=== PATIENT | female | born 1995 | race African-American/Black ===

== ENCOUNTER → 2017-05-30 | Outpatient (CLI) | payer MEDICAID ==
[2017-05-30 12:44] LABS: HEMATOCRIT 39.2 % (36.0-47.0); HEMOGLOBIN 12.7 g/dL (12.0-15.5); MEAN CORPUSCULAR HEMOGLOBIN 26.2 pg (27.0-33.4); MEAN CORPUSCULAR HGB CONC 32.3 g/dL (32.0-36.0); MEAN CORPUSCULAR VOLUME 81 fl (80-97); PLATELET COUNT 283 10^3/uL (150-450); RED BLOOD COUNT 4.84 10^6/uL (3.72-5.28); RED CELL DISTRIBUTION WIDTH 13.6 % (11.5-14.0); WHITE BLOOD COUNT 5.5 10^3/uL (4.0-10.5)
[2017-05-30 13:08] LABS: ANION GAP 12 (5-19); BLOOD UREA NITROGEN 12 mg/dL (7-20); CALCIUM 9.6 mg/dL (8.4-10.2); CARBON DIOXIDE 24 mmol/L (22-30); CHLORIDE 106 mmol/L (98-107); GLUCOSE 130 mg/dL (75-110); SODIUM 141.5 mmol/L (137-145)
[2017-05-30 13:21] LABS: FREE T4 (FREE THYROXINE) 1.14 ng/dL (0.78-2.19)
[2017-05-30 13:35] LABS: THYROID STIMULATING HORMONE 1.33 uIU/mL (0.47-4.68)
== END ==
LOC: OD 12:03
PROVIDERS: ATTEND Internal Medicine Cardiovascular Disease
DX: R00.2 Palpitations (principal)
CPT/HCPCS: 36415; 80048; 83735; 84439; 84443; 84481; 85027

== ENCOUNTER 2017-12-17 21:24 | Emergency (ER) | payer MEDICAID ==
[2017-12-17] MEDS ORDERED: ACETAMINOPHEN 325 MG TABLET PO ONE (22:05)
[2017-12-17] MEDS ORDERED: NORMAL SALINE 1000 ML 1,000 ML IV ONE (23:13)
[2017-12-17] MEDS ORDERED: IBUPROFEN 600 MG TABLET PO ONE (23:14)
[2017-12-18 00:41] LABS: ABSOLUTE BASOPHILS # (AUTO) 0.1 10^3/uL (0.0-0.2); ABSOLUTE EOSINOPHILS # (AUTO) 0.1 10^3/uL (0.0-0.6); ABSOLUTE LYMPHOCYTES (AUTO) 0.9 10^3/uL (0.5-4.7); ABSOLUTE MONOCYTES (AUTO) 0.6 10^3/uL (0.1-1.4); ABSOLUTE NEUT (AUTO) 7.3 10^3/uL (1.7-8.2); BASOPHILS % (AUTO) 0.6 % (0-2); EOSINOPHILS % (AUTO) 0.6 % (0-6); HEMATOCRIT 36.3 % (36.0-47.0); HEMOGLOBIN 12.3 g/dL (12.0-15.5); LYMPHOCYTES % (AUTO) 10.2 % (13-45); MEAN CORPUSCULAR HEMOGLOBIN 27.4 pg (27.0-33.4); MEAN CORPUSCULAR VOLUME 81 fl (80-97); MONOCYTES % (AUTO) 7.1 % (3-13); PLATELET COUNT 264 10^3/uL (150-450); RED BLOOD COUNT 4.51 10^6/uL (3.72-5.28); RED CELL DISTRIBUTION WIDTH 13.1 % (11.5-14.0); SEGMENTED NEUTROPHILS % (AUTO) 81.5 % (42-78); TOTAL CELLS COUNTED % (AUTO) 100 %
[2017-12-18 00:42] LABS: APPEARANCE,URINE CLEAR; BILIRUBIN,URINE NEGATIVE (NEGATIVE); COLOR,URINE YELLOW; GLUCOSE, URINE NEGATIVE (NEGATIVE); KETONES,URINE NEGATIVE (NEGATIVE); LEUKOCYTE ESTERASE,URINE NEGATIVE (NEGATIVE); NITRITE,URINE NEGATIVE (NEGATIVE); PROTEIN,URINE NEGATIVE (NEGATIVE); URINE SPECIFIC GRAVITY 1.024
[2017-12-18] MEDS ORDERED: SULFAMETHOXAZOLE/TRIMETHOPRIM 800-160 MG TABLET PO ONE (00:47)
--- NOTE | 2017-12-18 00:49 | ER Document Report ---
ED General - General Chief Complaint: Abscess Stated Complaint: POSSIBLE FEVER Time Seen by Provider: 12/17/17 23:12 Notes: Patient is a 22-year-old female without chronic medical problems who presents with fever and an abscess in her right pelvic region just superior and lateral to her labia majora. Patient states that her symptoms in terms of the fever started today, the abscess has been present for the past 3 days. She notes a dull, throbbing, constant pain to the area. Touching the area worsens the pain. Nothing improves the pain. Reports a long-standing history of similar infections in the past. She has not seen her general doctor regarding today's concerns. She denies any cough, sputum production, headache, neck pain, nausea , vomiting or diarrhea. TRAVEL OUTSIDE OF THE [place] IN LAST 30 DAYS: No - Related Data Allergies/Adverse Reactions: No Known Allergies Allergy (Unverified 12/17/17 21:37) Past Medical History - General Information source: Patient - Social History Smoking Status: Never Smoker Frequency of alcohol use: None Drug Abuse: None Lives with: Family Family History: Reviewed & Not Pertinent Patient has suicidal ideation: No Patient has homicidal ideation: No Renal/ Medical History: Denies: Hx Peritoneal Dialysis Review of Systems - Review of Systems Notes: Constitutional: Positive for fever. HENT: Negative for sore throat. Eyes: Negative for visual changes. Cardiovascular: Negative for chest pain. Respiratory: Negative for shortness of breath. Gastrointestinal: Negative for abdominal pain, vomiting or diarrhea. Genitourinary: Negative for dysuria. Musculoskeletal: Negative for back pain. Skin: Positive for right groin abscess Neurological: Negative for headaches, weakness or numbness. 10 point ROS negative except as marked above and in HPI. Physical Exam - Vital signs Vitals: Temp Pulse Resp BP Pulse Ox 102.0 F H 134 H 20 140/75 H 99 12/17/17 21:46 12/17/17 21:46 12/17/17 21:46 12/17/17 21:46 12/17/17 21:46 Interpretation: Hypertensive, Tachycardic, Febrile Notes: PHYSICAL EXAMINATION: GENERAL: Well-appearing, well-nourished and in no acute distress. HEAD: Atraumatic, normocephalic. EYES: Pupils equal round and reactive to light, extraocular movements intact, sclera anicteric, conjunctiva are normal. ENT: nares patent, oropharynx clear without exudates. Moderately dry mucous membranes. NECK: Normal range of motion, supple without lymphadenopathy LUNGS: Breath sounds clear to auscultation bilaterally and equal. No wheezes rales or rhonchi. HEART: Regular tachycardia without murmurs ABDOMEN: Soft, nontender, normoactive bowel sounds. No guarding, no rebound. No masses appreciated. EXTREMITIES: Normal range of motion, no pitting or edema. No cyanosis. NEUROLOGICAL: No focal neurological deficits. Moves all extremities spontaneously and on command. PSYCH: Normal mood, normal affect. SKIN: Warm, Dry, normal turgor, small 0.5 x 0.5 abscess in the right groin just superior and lateral to the labia majora on the right. This is already open and draining. Course - Re-evaluation Re-evalutation: 12/18/17 00:47 Patient presents with an abscess to her right pelvis just above the labia majora on the right, not a Bartholin cyst or actual labial abscess. This did spontaneously open and was completely drained at the bedside with direct pressure and irrigation. The patient was febrile at time of presentation, did defervesce after receiving antipyretics and her tachycardia likewise improved. The patient received IV fluids and will be started on trimethoprim sulfamethoxazole. No indication for hospitalization at this point. No surrounding cellulitis to the area. At this time will discharge with return precautions and follow-up recommendations. Verbal discharge instructions given a the bedside and opportunity for questions given. Medication warnings reviewed. Patient is in agreement with this plan and has verbalized understanding of return precautions and the need for primary care follow-up in the next 24-72 hours. 12/18/17 03:34 - Vital Signs Vital signs: Temp Pulse Resp BP Pulse Ox 99.1 F 104 H 20 133/83 H 100 12/18/17 02:13 12/18/17 02:13 12/18/17 02:13 12/18/17 02:13 12/18/17 02:13 - Laboratory Result Diagrams: 12/18/17 00:20 12/18/17 00:20 Laboratory results interpreted by me: 12/18/17 12/18/17 00:05 00:20 Seg Neutrophils % 81.5 H Lymphocytes % 10.2 L Urine Urobilinogen 4.0 H Urine Ascorbic Acid 20 H Discharge - Discharge Clinical Impression: Pelvic abscess in female Nausea and vomiting Qualifiers: Vomiting type: unspecified Vomiting Intractability: non-intractable Qualified Code(s): R11.2 - Nausea with vomiting, unspecified Fever Qualifiers: Fever type: unspecified Qualified Code(s): R50.9 - Fever, unspecified Condition: Good Disposition: HOME, SELF-CARE Additional Instructions: You were seen for an abscess that required drainage. Please clean this area with soap and water twice daily and apply a topical antibiotic. Dress the area after each cleaning. Please return if you develop recurrent fever, vomiting, the pain at the site worsens, you notice spreading redness from the area, or you have any other symptoms that are concerning to you. Prescriptions: Sulfamethoxazole/Trimethoprim [Bactrim Ds Tablet] 2 tab PO BID #28 tablet Forms: Return to Work Referrals: GENE WU MD [Primary Care Provider] - Follow up tomorrow
[2017-12-18 01:01] LABS: ANION GAP 8 (5-19); BLOOD UREA NITROGEN 11 mg/dL (7-20); CARBON DIOXIDE 24 mmol/L (22-30); CHLORIDE 106 mmol/L (98-107); GLUCOSE 100 mg/dL (75-110); SODIUM 137.8 mmol/L (137-145)
[2017-12-18 01:23] VITALS: BP 133/83
== END 2017-12-18 02:12 | disposition home or self-care (01) ==
LOC: ER 21:24
DX: N76.4 Abscess of vulva (principal); R50.9 Fever, unspecified; R11.2 Nausea with vomiting, unspecified
CPT/HCPCS: 99283; 96360; 96361; 36415; 87040; 87086; 83605; 84703; 85025; 80048; 81001; J3490 ×3; J7030

== ENCOUNTER 2018-03-26 10:00 | Emergency (ER) | payer SELFPAY ==
[2018-03-26 10:06] VITALS: BP 131/84
--- NOTE | 2018-03-26 10:12 | ER Document Report ---
ED Medical Screen (RME) - General Chief Complaint: Abdominal Pain Stated Complaint: ABDOMINAL PAIN Time Seen by Provider: 03/26/18 10:09 Primary Care Provider: EGNE WU MD [Primary Care Provider] - Follow up as needed Mode of Arrival: Ambulatory Information source: Patient Notes: This is a 23-year-old female with a history of palpitations (no current medicines) who presents to the emergency room with intermittent abdominal discomfort and vaginal discharge for the past week. Patient is sexually active and stopped taking her control. She states she "might be ". Her last normal menstrual period was February 27. She denies any vaginal bleeding. Medications: None No known drug allergies Primary CARE physician: None Obstetric history: G0 TRAVEL OUTSIDE OF THE [place] IN LAST 30 DAYS: No - Related Data Allergies/Adverse Reactions: No Known Allergies Allergy (Verified 03/26/18 10:00) Past Medical History - Social History Chew tobacco use (# tins/day): No Frequency of alcohol use: None Drug Abuse: None Renal/ Medical History: Denies: Hx Peritoneal Dialysis Physical Exam - Vital signs Vitals: Temp Pulse Resp BP Pulse Ox 98.4 F 102 H 16 131/84 H 99 03/26/18 10:05 03/26/18 10:05 03/26/18 10:05 03/26/18 10:05 03/26/18 10:05 Course - Vital Signs Vital signs: Temp Pulse Resp BP Pulse Ox 98.4 F 102 H 16 131/84 H 99 03/26/18 10:05 03/26/18 10:05 03/26/18 10:05 03/26/18 10:05 03/26/18 10:05 Doctor's Discharge - Discharge Referrals: GENE WU MD [Primary Care Provider] - Follow up as needed
[2018-03-26 10:49] LABS: BILIRUBIN,URINE NEGATIVE (NEGATIVE); COLOR,URINE YELLOW; GLUCOSE, URINE NEGATIVE (NEGATIVE); KETONES,URINE NEGATIVE (NEGATIVE); LEUKOCYTE ESTERASE,URINE NEGATIVE (NEGATIVE); NITRITE,URINE NEGATIVE (NEGATIVE); PROTEIN,URINE NEGATIVE (NEGATIVE); URINE SPECIFIC GRAVITY 1.026
[2018-03-26 10:51] LABS: APPEARANCE,URINE CLEAR
--- NOTE | 2018-03-26 11:42 | ER Document Report ---
ED GI/ - General Chief Complaint: Abdominal Pain Stated Complaint: ABDOMINAL PAIN Time Seen by Provider: 03/26/18 10:09 Primary Care Provider: GENE WU MD [EMERITUS] - Follow up as needed Mode of Arrival: Ambulatory Notes: Patient says that she is had stomach pains in the lower portion of her abdomen for the past few weeks. She says it is constantly there. She is been nauseated at times but not vomiting and no diarrhea. Her last menstrual cycle was in February. She was on Depakote shots for control but her last shot was in October. She is not sure if she is or not. She thinks she had some fever last week. Denies any UTI symptoms. Does not take any medications for any medical problems. No history of any GI diseases. No abdominal operations or surgeries. TRAVEL OUTSIDE OF THE [place] IN LAST 30 DAYS: No - Related Data Allergies/Adverse Reactions: No Known Allergies Allergy (Verified 03/26/18 10:00) Past Medical History - General Information source: Patient - Social History Smoking Status: Never Smoker Chew tobacco use (# tins/day): No Frequency of alcohol use: None Drug Abuse: None Family History: Reviewed & Not Pertinent Patient has suicidal ideation: No Patient has homicidal ideation: No GI Medical History: Reports: None Surgical Hx: Negative Review of Systems - Review of Systems Notes: REVIEW OF SYSTEMS: CONSTITUTIONAL : Fever last week. EENT: Denies eye, ear, nose or mouth or throat pain or other symptoms. CARDIOVASCULAR: Denies chest pain currently. RESPIRATORY: Denies cough, chest congestion, or shortness of breath. GASTROINTESTINAL: See HPI. Denies vomiting or diarrhea. GENITOURINARY: Denies difficulty or painful urinating, urinary frequency, blood in urine. MUSCULOSKELETAL: Denies back or neck pain. Denies joint pain or swelling. SKIN: Denies rash or skin lesions. NEUROLOGICAL: Denies LOC or altered mental status. Denies headache. Denies sensory loss or motor deficits. ALL OTHER SYSTEMS REVIEWED AND NEGATIVE. Physical Exam - Vital signs Vitals: Temp Pulse Resp BP Pulse Ox 98.4 F 102 H 16 131/84 H 99 03/26/18 10:05 03/26/18 10:05 03/26/18 10:05 03/26/18 10:05 03/26/18 10:05 Interpretation: Normal Notes: PHYSICAL EXAMINATION: GENERAL: Well-appearing, in no acute distress. HEAD: Atraumatic, normocephalic. EYES: Pupils equal round and reactive to light, extraocular movements intact. ENT: oropharynx clear without exudates. Moist mucous membranes. NECK: Normal range of motion, supple. LUNGS: Breath sounds clear and equal bilaterally. HEART: Regular rate and rhythm without murmurs. ABDOMEN: Soft, nontender. No guarding or rebound. No masses. BACK: No tenderness throughout entire back. EXTREMITIES: Normal range of motion without pain. NEUROLOGICAL: Normal speech, normal gait. Normal sensory, motor, and reflex exams. Awake, alert, and oriented x3. Cranial nerves normal. PSYCH: Normal mood, normal affect. SKIN: Warm, dry, no rashes. - Genitourinary External exam: Normal Speculum exam: Normal, Cervix closed. No: Vaginal discharge Vaginal bleeding: None Bimanuel exam: Normal - Patient says that she is having discomfort when I do the pelvic exam, but really not very tender anywhere.. No: Cervical motion tender, Adnexal mass, Uterus enlarged Course - Vital Signs Vital signs: Temp Pulse Resp BP Pulse Ox 98.4 F 102 H 16 131/84 H 99 03/26/18 10:05 03/26/18 10:05 03/26/18 10:05 03/26/18 10:05 03/26/18 10:05 - Laboratory Laboratory results interpreted by me: 03/26/18 10:15 Urine Urobilinogen 2.0 H Discharge - Discharge Clinical Impression: Abdominal pain, Pelvic pain, Pelvic infection Additional Instructions: Pelvic pain: There are many causes of pain in the pelvic area. The cause could be the tubes, ovaries, uterus, intestines, appendix, pelvic muscles and connective tissue, or the urinary tract. The cause of your pelvic pain is not clear. However, it seems safe to treat you outside the hospital. If the pain sounds like a temporary problem, we sometimes wait to see if it goes away. Other patients may need additional tests, such as pelvic ultrasound or cultures. Conditions may change. Call us or come back for reexamination if any problems occur, such as: (1) Pain that becomes more severe, steady, or becomes concentrated in one specific area. Also, pain that is more severe with movement or coughing. (2) Vomiting that persists or becomes more frequent. (3) Blood in the vomitus, urine, or bowel movements. Blood in the stool may have a tarry or black appearance. (4) Shaking chills or fever greater than 100 degrees. (5) The abdomen becomes more distended or swollen. (6) Bowel movements cease. (7) Heavy vaginal bleeding. PELVIC INFLAMMATORY DISEASE: You have been diagnosed as having pelvic inflammatory disease (PID). This is an infection of the fallopian tubes and surrounding areas of the pelvis. Symptoms are usually pelvic pain and discharge. The infection can do permanent damage to the tubes and ovaries. It should be taken very seriously. Treatment is antibiotics, which may be given by vein or by injection if the infection seems serious. It's important that you receive all recommended medication. Condoms help prevent spread of this infection to others. Because this infection is spread sexually, it's important that your sexual partner be checked before resuming sexual relations. If a culture shows gonorrhea or chlamydia organisms, the law requires that this be reported to the health department. Call the doctor or return at once if you develop increasing fever, rash, severe pelvic pain, vaginal bleeding (other than your period), or problems with your bladder or bowels. ANTIBIOTIC THERAPY: You have been given an antibiotic prescription. It's important that you take all the medication, unless instructed otherwise by your physician. Failure to complete the entire course can result in relapse of your condition. Common side effects of antibiotics include nausea, intestinal cramping, or diarrhea. Women may develop vaginal yeast infections, and babies can get yeast (thrush) in the mouth following the use of antibiotics. Contact your physician if you develop significant side effects from this medication. Allergy to this antibiotic can result in hives, wheezing, faintness, or itching. If symptoms of allergy occur, stop the medication and call the doctor. DOXYCYCLINE: Doxycycline (Vibramycin, Doryx) is an antibiotic of the tetracycline family. This type of drug is useful for infections of the respiratory tract and genital tract, and is sometimes used for intestinal infections. Unlike most tetracyclines, doxycycline can be taken with food. It is longer acting, and (usually) less prone to side effects than regular tetracycline. Tetracycline antibiotics can stain immature teeth and SHOULD NOT BE TAKEN BY CHILDREN, NURSING MOTHERS, OR WOMEN. Tetracyclines can make you more prone to sunburn. Abdominal cramping, nausea, and diarrhea are occasional side effects. Women may experience vaginal yeast infections. Call the doctor at once if you develop hives, itching, shortness of breath, or lightheadedness. AZITHROMYCIN: Azithromycin (Zithromax) is a broad spectrum antibiotic in the same class as erythromycin. It can treat a variety of bacterial infections, but is most frequently used for respiratory infections. Azithromycin is extremely long-lasting. It accumulates in body tissues and continues to kill bacteria for many days. In order to improve absorption, Azithromycin should be taken at least one hour before or two hours after a meal. It does not have the same strong tendency to upset the stomach as erythromycin and is usually very well tolerated. Patients who have had a rash or other true allergic reactions to eryth romycin should not take this medication. Call if you develop gastrointestinal distress, severe diarrhea, rash, hives, itching, or shortness of breath. METRONIDAZOLE: Metronidazole (Flagyl) has been prescribed. This medication is used to kill a type of bacteria called anaerobes, and protozoan parasites such as trichomonas and Giardia. Flagyl often causes a metallic taste in the mouth and mild nausea. Do not use alcohol in any form with Flagyl (including alcohol in medication elixirs). Flagyl interacts with alcohol to cause flushing, palpitations, headache, stomach cramps, and vomiting. Do not use Flagyl if you are taking Antabuse (disulfiram). Call the doctor at once if you develop rash, shortness of breath, itching, or lightheadedness. Ibuprofen Ibuprofen is an excellent, safe drug for pain control. In addition, it has potent antiinflammatory effects which are beneficial, especially in the treatment of injuries, arthritis, or tendonitis. It's best to take ibuprofen with food. Persons with ulcer disease or allergy to aspirin should notify their physician of this before taking ibuprofen. Take the medication exactly as prescribed. Don't take additional doses unless instructed to do so by your doctor. If you develop wheezing, shortness of breath, hives, faintness, stomach pain, vomiting, or dark black stools, return for re-evaluation at once. FOLLOW-UP CARE: If you have been referred to a physician for follow-up care, call the physicians office for an appointment as you were instructed or within the next two days. If you experience worsening or a significant change in your symptoms, notify the physician immediately or return to the Emergency Department at any time for re-evaluation. Prescriptions: Metronidazole [Flagyl 250 mg Tablet] 250 mg PO TID #20 tablet Referrals: GENE WU MD [EMERITUS] - Follow up as needed
[2018-03-26 11:59] LABS: RBCS (WET MOUNT) NO RBCS SEEN; T.VAGINALIS (WET MOUNT) NO TRICHOMONAS SEEN; WBCS (WET MOUNT) RARE WBCS SEEN; YEAST (WET MOUNT) NO YEAST SEEN
[2018-03-26] MEDS ORDERED: AZITHROMYCIN 1 GM SUSP PACKET PO ONE (13:30)
[2018-03-26 13:31] LABS: CHLAM PCR NOT DETECTED (NOT DETECT); GON PCR NOT DETECTED (NOT DETECT)
[2018-03-26] MEDS ORDERED: METRONIDAZOLE 250 MG TABLET PO SCH ×2 (14:00)
== END 2018-03-26 14:07 | disposition home or self-care (01) ==
LOC: ER 10:00
DX: N73.9 Female pelvic inflammatory disease, unspecified (principal); R10.2 Pelvic and perineal pain; R10.9 Unspecified abdominal pain; R10.30 Lower abdominal pain, unspecified; R11.0 Nausea
CPT/HCPCS: 99284; 87210; 81025; 81001; 87491; 87591; Q0144; J3490

== ENCOUNTER 2018-05-25 11:54 | Observation (INO) | payer SELFPAY ==
[2018-05-25] MEDS ORDERED: SUCCINYLCHOLINE CHLORIDE INJ 200 MG/10 ML VIAL ONE (12:03)
--- NOTE | 2018-05-25 12:37 | ER Document Report ---
ED General - General Chief Complaint: Skin Problem Stated Complaint: BUTT CHEEK SWOLLEN Time Seen by Provider: 05/25/18 12:14 TRAVEL OUTSIDE OF THE [place] IN LAST 30 DAYS: No - HPI Notes: Patient is a 23-year-old female with no significant past medical history who presents to the emergency department complaining of upper buttock pain over the last week, but noticed swelling and increased pain over the last couple days. Patient states that she has not had this before. Denies drug allergies. She has not noticed any streaks or purulent discharge. Pain does not radiate. Denies any injury. She is otherwise eating and drink without difficulty, but has not had anything p.o. since last evening. She is urinating normally and having normal bowel movements. Pressure in the area makes the pain worse. Denies any headache, fever, neck pain, URI, sore throat, chest pain, palpitations, syncope, cough, shortness of breath, wheeze, dyspnea, abdominal pain, nausea/vomiting/diarrhea, urinary retention, dysuria, hematuria, loss of control of bowel or bladder, numbness/tingling, saddle anesthesia, muscle paralysis/weakness, or rash. - Related Data Allergies/Adverse Reactions: No Known Allergies Allergy (Verified 05/25/18 11:57) Past Medical History - Social History Smoking Status: Never Smoker Family History: Reviewed & Not Pertinent Renal/ Medical History: Denies: Hx Peritoneal Dialysis Review of Systems - Review of Systems -: Yes All other systems reviewed and negative Physical Exam - Vital signs Vitals: Temp Pulse Resp BP Pulse Ox 98.2 F 113 H 16 139/80 H 100 05/25/18 11:57 05/25/18 11:57 05/25/18 11:57 05/25/18 11:57 05/25/18 11:57 - Notes Notes: PHYSICAL EXAMINATION: GENERAL: Well-appearing, well-nourished and in no acute distress. LUNGS: Breath sounds clear to auscultation bilaterally and equal. No wheezes rales or rhonchi. HEART: Regular rate and rhythm without murmurs, rubs, gallops. ABDOMEN: Soft, nontender, nondistended abdomen. No guarding, no rebound. No masses appreciated. Normal bowel sounds present. No CVA tenderness bilaterally. Buttock: + fluctuance, induration, tenderness, warmth to the midline superior cleft and favoring left buttock. No rectal tenderness. No obvious discharge or streaks. Musculoskeletal: FROM to passive/active. Strength 5+/5. Extremities: No cyanosis, clubbing, or edema b/l. Peripheral pulses 2+. Capillary refill less than 3 seconds. NEUROLOGICAL: Normal speech, normal gait. PSYCH: Normal mood, normal affect. SKIN: see above. Course - Re-evaluation Re-evalutation: 05/25/18 12:[address] Awan who will come evaluate the patient. She has been NPO since last evening. 05/25/18 13:03 Dr. Awan, surgeon, eval'd the patient and is taking her to the OR. Pt in agreement with this plan. Orders per Dr. Awan. - Vital Signs Vital signs: Temp Pulse Resp BP Pulse Ox 98.2 F 113 H 16 139/80 H 100 05/25/18 11:57 05/25/18 11:57 05/25/18 11:57 05/25/18 11:57 05/25/18 11:57 Discharge - Discharge Clinical Impression: Pilonidal abscess Condition: Stable Disposition: ADMITTED INPATIENT Admitting Provider: Surgicalist - Dr. Awan Unit Admitted: Surgical Floor
[2018-05-25] MEDS ORDERED: NORMAL SALINE 1000 ML 1,000 ML IV ONE (12:52)
[2018-05-25] MEDS ORDERED: PIPERACILLIN/TAZOBACTAM 3.375 GM VIAL IV ONE (12:53)
[2018-05-25 13:44] LABS: ABSOLUTE BASOPHILS # (AUTO) 0.1 10^3/uL (0.0-0.2); ABSOLUTE EOSINOPHILS # (AUTO) 0.1 10^3/uL (0.0-0.6); ABSOLUTE LYMPHOCYTES (AUTO) 3.1 10^3/uL (0.5-4.7); ABSOLUTE MONOCYTES (AUTO) 0.9 10^3/uL (0.1-1.4); BASOPHILS % (AUTO) 0.6 % (0-2); EOSINOPHILS % (AUTO) 0.5 % (0-6); HEMATOCRIT 39.6 % (36.0-47.0); HEMOGLOBIN 13.3 g/dL (12.0-15.5); LYMPHOCYTES % (AUTO) 20.2 % (13-45); MEAN CORPUSCULAR HEMOGLOBIN 27.5 pg (27.0-33.4); MEAN CORPUSCULAR HGB CONC 33.5 g/dL (32.0-36.0); MEAN CORPUSCULAR VOLUME 82 fl (80-97); MONOCYTES % (AUTO) 6.2 % (3-13); PLATELET COUNT 277 10^3/uL (150-450); RED BLOOD COUNT 4.83 10^6/uL (3.72-5.28); RED CELL DISTRIBUTION WIDTH 12.9 % (11.5-14.0); SEGMENTED NEUTROPHILS % (AUTO) 72.5 % (42-78); TOTAL CELLS COUNTED % (AUTO) 100 %; WHITE BLOOD COUNT 15.1 10^3/uL (4.0-10.5)
[2018-05-25] MEDS ORDERED: LIDOCAINE 1% INJ-PF (10 MG/ML) 30 ML SDV ONE (13:55)
[2018-05-25] MEDS ORDERED: FENTANYL CITRATE INJ/PF 100 MCG/2 ML AMPUL ONE (14:05)
[2018-05-25] MEDS ORDERED: ONDANSETRON HCL INJ/PF 4 MG/2 ML SDV ONE (14:06)
[2018-05-25] MEDS ORDERED: EPHEDRINE SULFATE INJ 50 MG/1 ML AMPULE ONE (14:06)
[2018-05-25] MEDS ORDERED: ACETAMINOPHEN 1,000 MG/100 ML RTUPB IV ONE (14:06)
[2018-05-25] MEDS ORDERED: DEXAMETHASONE SOD PHOSPHATE INJ 4 MG/1 ML VIAL ONE (14:06)
[2018-05-25] MEDS ORDERED: HYDROMORPHONE HCL INJ/PF 2 MG/ML AMPULE ONE (14:06)
[2018-05-25] MEDS ORDERED: MIDAZOLAM 2 MG/2 ML INJ ONE (14:06)
[2018-05-25] MEDS ORDERED: PROPOFOL INJ 200 MG/20 ML VIAL IV ONE (14:06)
[2018-05-25] MEDS ORDERED: LIDOCAINE 0.5% INJ-PF (5 MG/ML) 50 ML SDV ONE (14:15)
[2018-05-25] MEDS ORDERED: DEXAMETHASONE SOD PHOS INJ 10 MG/1 ML VIAL ONE (15:00)
[2018-05-25] MEDS ORDERED: HYDROMORPHONE HCL INJ/PF 2 MG/ML AMPULE IV PRN (15:08)
--- NOTE | 2018-05-25 15:14 | PDOC PROGRESS REPORT ---
Subjective Progress Note for:: 05/25/18 Subjective:: sacral pains Reason For Visit: PILONIDAL ABSCESS Physical Exam Vital Signs: Temp Pulse Resp BP Pulse Ox 98.4 F 86 18 130/70 H 98 05/25/18 13:30 05/25/18 13:30 05/25/18 13:30 05/25/18 13:30 05/25/18 13:30 Intake & Output 05/24/18 05/25/18 05/26/18 06:59 06:59 06:59 Weight 87 kg Exam: Had unsuccesful intubation in the OR. Anesthesia feels not safe to do surgery today. Suggested give Decadronby anesthesia to decrease edema around vocal cords from the unsuccessful attempts at intubation. Will re-schedule tomorrow. Contnue IV antibiotics Results Laboratory Results: 05/25/18 13:08 05/25/18 13:08 05/25/18 05/25/18 13:08 13:08 WBC 15.1 H RBC 4.83 Hgb 13.3 Hct 39.6 MCV 82 MCH 27.5 MCHC 33.5 RDW 12.9 Plt Count 277 Seg Neutrophils % 72.5 Lymphocytes % 20.2 Monocytes % 6.2 Eosinophils % 0.5 Basophils % 0.6 Absolute Neutrophils 11.0 H Absolute Lymphocytes 3.1 Absolute Monocytes 0.9 Absolute Eosinophils 0.1 Absolute Basophils 0.1 Sodium Cancelled Potassium Cancelled Chloride Cancelled Carbon Dioxide Cancelled Anion Gap Cancelled BUN Cancelled Creatinine Cancelled Est GFR ( Amer) Cancelled Est GFR (Non-Af Amer) Cancelled Glucose Cancelled Calcium Cancelled Total Bilirubin Cancelled AST Cancelled ALT Cancelled Alkaline Phosphatase Cancelled Total Protein Cancelled Albumin Cancelled Assessment & Plan - Diagnosis (1) Pilonidal abscess Is this a current diagnosis for this admission?: Yes - Time Time Spent with patient: 15-24 minutes - Inpatient Certification Medical Necessity: Need for Pain Control, Need for IV Antibiotics, Need for Surgery - Plan Summary Plan Summary: Re-schedule I&D of Pilonidal abscess tomorrow. Will inform Dr Siu. Give a dose of Decadron today to decrease edema around cord structures Continue IV antibiotics and pain mx
[2018-05-25] MEDS: PIPERACILLIN SODIUM/TAZOBACTAM 3.375 GM in NORMAL SALINE 100 ML IV SCH ×2 (17:39→23:18)
[2018-05-26] MEDS: NORMAL SALINE 1000 ML 1,000 ML IV PRN ×3 (03:39→22:41)
[2018-05-26] MEDS: PIPERACILLIN SODIUM/TAZOBACTAM 3.375 GM in NORMAL SALINE 100 ML IV SCH ×4 (05:37→23:07)
[2018-05-26] MEDS ORDERED: BUPIVACAINE HCL 0.25% /EPINEPHRINE INJ/PF 30 ML SDV ONE (07:28)
[2018-05-26] MEDS ORDERED: LIDOCAINE 2% INJ-PF (100 MG/5 ML) SYRINGE ONE (09:05)
[2018-05-26] MEDS ORDERED: DEXAMETHASONE SOD PHOSPHATE INJ 4 MG/1 ML VIAL ONE (09:06)
[2018-05-26] MEDS ORDERED: MIDAZOLAM 2 MG/2 ML INJ ONE (09:06)
[2018-05-26] MEDS ORDERED: ACETAMINOPHEN 1,000 MG/100 ML RTUPB IV ONE (09:06)
[2018-05-26] MEDS ORDERED: ONDANSETRON HCL INJ/PF 4 MG/2 ML SDV ONE (09:06)
[2018-05-26] MEDS ORDERED: PROPOFOL INJ 200 MG/20 ML VIAL IV ONE (09:06)
[2018-05-26] MEDS ORDERED: FENTANYL CITRATE INJ/PF 100 MCG/2 ML AMPUL ONE (09:06)
[2018-05-26] MEDS ORDERED: DIPHENHYDRAMINE HCL 50 MG/ML VIAL IV PRN (09:56)
[2018-05-26] MEDS ORDERED: ONDANSETRON HCL INJ/PF 4 MG/2 ML SDV IV PRN (09:56)
[2018-05-26] MEDS ORDERED: MEPERIDINE HCL/PF INJ 25 MG/1 ML DISP.SYRIN IV PRN (09:56)
[2018-05-26] MEDS ORDERED: FENTANYL CITRATE INJ/PF 100 MCG/2 ML AMPUL IV PRN ×3 (09:56)
[2018-05-26] MEDS ORDERED: PROMETHAZINE HCL INJ 25 MG/1 ML VIAL IV PRN ×2 (09:56)
[2018-05-26] MEDS ORDERED: OXYCODONE-ACETAMINOPHEN 5-325 MG TABLET PO PRN ×3 (09:56→09:59)
--- NOTE | 2018-05-26 09:56 | Operative Report ---
Nonrecallable Operative Report DATE OF SURGERY: 05/26/18 PREOPERATIVE DIAGNOSIS: pilonidal abscess POSTOPERATIVE DIAGNOSIS: pilonidal abscess OPERATION: incision and drainage of pilonidal abscess SURGEON: ULI HUNG ANESTHESIA: Spinal COMPLICATIONS: none ESTIMATED BLOOD LOSS: 5cc INTRAOPERATIVE FINDINGS: 20cc pus PROCEDURE: see dictation
[2018-05-26] MEDS ORDERED: IBUPROFEN 600 MG TABLET PO PRN (21:20)
[2018-05-26] MEDS: ACETAMINOPHEN 325 MG TABLET PO PRN (22:39)
[2018-05-27] MEDS: PIPERACILLIN SODIUM/TAZOBACTAM 3.375 GM in NORMAL SALINE 100 ML IV SCH (05:52)
[2018-05-27] MEDS: ACETAMINOPHEN 325 MG TABLET PO PRN (05:53)
--- NOTE | 2018-05-27 09:25 | Discharge Summary ---
Discharge Summary (SDC) - Discharge Final Diagnosis: pilonidal abscess Date of Surgery: 05/26/18 Condition: Good Discharge Diet: As Tolerated Discharge Activity: Activity As Tolerated, Other - sitz bath 30min twice a day with epsome salts. Report the Following to Your Physician Immediately: Nausea, Vomiting, Increase in Pain
[2018-05-27 10:54] VITALS: BP 129/56
--- NOTE | 2018-05-28 08:27 | DISCHARGE SUMMARY E ---
Discharge Summary NAME: BEV ADAMS : 1995 AGE: 23Y ADMITTED: 05/25/2018 DISCHARGED: 05/27/2018 The patient is being discharged from room 425. ADMISSION DIAGNOSIS: Pilonidal abscess. DISCHARGE DIAGNOSIS: Pilonidal abscess. OPERATIVE PROCEDURE: Incision and drainage of pilonidal abscess. SURGEON: Jeff Hung M.D. REASON FOR HOSPITALIZATION/HOSPITAL COURSE: This is a 23-year-old female who was admitted by Dr. Awan on the 25 of May with perirectal pain. Attempts at draining a pilonidal abscess in the emergency room failed and she was admitted for operative incision and drainage. She underwent that procedure on the and tolerated it well. A large abscess was drained and she was admitted to the floor postoperatively. During the course of the evening she underwent dressing changes and her pain markedly decreased. This morning, on 05/27, she is afebrile and vital signs are stable. She is tolerating a regular diet. The wound packing has been removed and the patient's mother has been instructed in wound packing and wound care. The patient is instructed to do b.i.d. sitz baths with Epsom salts for 30 minutes twice a day and for the mother to change the dressing twice a day. She will be given a follow-up appointment with [facility] the following week after discharge. She is going to be discharged home on Keflex 500 mg p.o. every 6 hours for 10 days and pain medication, Tramadol 50 mg 1 p.o. every 6 hours p.r.n. pain. She was instructed to call should she develop increasing fever or increasing abdominal pain or swelling. She will be given an off work slip until she is followed up in [facility]. DICTATING PHYSICIAN: JEFF HUNG M.D. [id number] PHY#: [id number] ID: [id number] JOB#: [id number] ACCT: [id number] cc:Chauncey MELVIN M.D. >
--- NOTE | 2018-05-28 14:48 | OPERATIVE REPORT E ---
Operative Report NAME: BEV ADAMS : 1995 AGE: 23Y DATE OF SURGERY: 05/26/2018 ROOM: 425 PREOPERATIVE DIAGNOSIS: PILONIDAL ABSCESS. POSTOPERATIVE DIAGNOSIS: PILONIDAL ABSCESS. OPERATION: INCISION AND DRAINAGE OF PILONIDAL ABSCESS. SURGEON: ULI HUNG M.D. ANESTHESIA: Spinal. PROCEDURE: The patient was brought to the operating room in awake, alert, and stable condition. She was placed on the operating table, and a spinal anesthetic was placed. She was then placed in a prone position. The buttock and lower back were prepped and draped in the usual sterile fashion for the procedure. The patient had a pilonidal abscess on the left of the buttock cleft that was approximately 4 cm long x about 2 cm wide. A longitudinal incision was made directly over the pointing abscess. Dissection was carried down through subcutaneous tissue with Bovie cautery. Upon reaching the abscess cavity, approximately 20 mL of pus exuded from the wound. It was then copiously irrigated with normal saline and suctioned dry. Hemostasis of the wound edges was obtained with Bovie cautery. After getting good hemostasis, further irrigation then ensued. The wound was packed with a Betadine-soaked sponge which completed the procedure. Estimated loss was less than 5 mL. Sponge and needle counts were correct x2. The patient was transferred back to the [facility] and taken to recovery in stable condition. DICTATING PHYSICIAN: ULI HUNG M.D. [id number] PHY#: [id number] ID: [id number] JOB#: [id number] ACCT: [id number] cc:ULI HUNG M.D. >
== END 2018-05-27 12:11 | disposition home or self-care (01) ==
LOC: ER 11:54 → EH 13:14 → INTOOBSV 13:14 → 4S 16:08
PROVIDERS: ADMIT Surgery; ATTEND Surgery
PROC: 0H98XZZ Drainage of Buttock Skin, External Approach (ICD-10-PCS; 2018-05-25)
PROC: 0H98XZZ Drainage of Buttock Skin, External Approach (ICD-10-PCS; principal; 2018-05-26 09:00)
DX: L05.01 Pilonidal cyst with abscess (principal); T88.4XXA Failed or difficult intubation, initial encounter; Y84.8 Other medical procedures as the cause of abnormal reaction of the patient, or of later complication, without mention of misadventure at the time of the procedure; Y92.234 Operating room of hospital as the place of occurrence of the external cause; J38.4 Edema of larynx
CPT/HCPCS: 10080 ×2; 99284; 36415; 87040; 87070; 87205; 85025; 81025; 87075; 87077; G0378 ×4; J2250 ×2; J1100 ×3; J3010 ×2; J3490; J2001; J0330; J2405 ×2; J7030 ×2; J2704 ×2; J2543 ×3; J0131 ×2; 300; J1170

== ENCOUNTER 2019-01-28 17:56 | Emergency (ER) | payer SELFPAY ==
--- NOTE | 2019-01-28 18:31 | ER Document Report ---
ED Medical Screen (RME) - General Chief Complaint: Abdominal Pain Stated Complaint: ABDOMINAL PAIN Time Seen by Provider: 01/28/19 18:26 Mode of Arrival: Wheelchair Information source: Patient Notes: Patient presents complaining of nausea and middle abdominal tenderness that has been constant for the past week. Patient reports subjective fever a few days ago. Patient is concerned she may be . Patient does report vaginal discharge as well. I have greeted and performed a rapid initial assessment of this patient. A comprehensive ED assessment and evaluation of the patient, analysis of test results and completion of the medical decision making process will be conducted by additional ED providers. TRAVEL OUTSIDE OF THE [place] IN LAST 30 DAYS: No - Related Data Allergies/Adverse Reactions: acetaminophen [From Percocet] Allergy (Verified 01/28/19 18:29) oxycodone [From Percocet] Allergy (Verified 01/28/19 18:29) Past Medical History - Social History Frequency of alcohol use: Social Drug Abuse: None Renal/ Medical History: Denies: Hx Peritoneal Dialysis Physical Exam - Vital signs Vitals: Temp Pulse Resp BP Pulse Ox 98.2 F 99 20 143/58 H 99 01/28/19 18:01 01/28/19 18:01 01/28/19 18:01 01/28/19 18:01 01/28/19 18:01 - General General appearance: Appears well, Alert In distress: None - Abdominal Tenderness: Tender - periumbilical Course - Vital Signs Vital signs: Temp Pulse Resp BP Pulse Ox 98.2 F 99 20 143/58 H 99 01/28/19 18:01 01/28/19 18:01 01/28/19 18:01 01/28/19 18:01 01/28/19 18:01
[2019-01-28 19:21] LABS: ABSOLUTE BASOPHILS # (AUTO) 0.1 10^3/uL (0.0-0.2); ABSOLUTE LYMPHOCYTES (AUTO) 2.6 10^3/uL (0.5-4.7); ABSOLUTE MONOCYTES (AUTO) 0.5 10^3/uL (0.1-1.4); ABSOLUTE NEUT (AUTO) 4.6 10^3/uL (1.7-8.2); BASOPHILS % (AUTO) 0.7 % (0-2); EOSINOPHILS % (AUTO) 0.6 % (0-6); HEMATOCRIT 36.8 % (36.0-47.0); HEMOGLOBIN 12.2 g/dL (12.0-15.5); LYMPHOCYTES % (AUTO) 33.5 % (13-45); MEAN CORPUSCULAR HEMOGLOBIN 27.6 pg (27.0-33.4); MEAN CORPUSCULAR HGB CONC 33.2 g/dL (32.0-36.0); MEAN CORPUSCULAR VOLUME 83 fl (80-97); MONOCYTES % (AUTO) 6.9 % (3-13); PLATELET COUNT 269 10^3/uL (150-450); RED BLOOD COUNT 4.42 10^6/uL (3.72-5.28); RED CELL DISTRIBUTION WIDTH 13.4 % (11.5-14.0); SEGMENTED NEUTROPHILS % (AUTO) 58.3 % (42-78); TOTAL CELLS COUNTED % (AUTO) 100 %; WHITE BLOOD COUNT 7.9 10^3/uL (4.0-10.5)
[2019-01-28 19:32] LABS: APPEARANCE,URINE SLIGHTLY-CLOUDY; BILIRUBIN,URINE NEGATIVE (NEGATIVE); COLOR,URINE YELLOW; GLUCOSE, URINE NEGATIVE (NEGATIVE); KETONES,URINE NEGATIVE (NEGATIVE); PROTEIN,URINE 30 mg/dL (NEGATIVE); URINE SPECIFIC GRAVITY 1.024; UROBILINOGEN,URINE NEGATIVE mg/dL (<2.0)
[2019-01-28 19:48] LABS: ALBUMIN 4.2 g/dL (3.5-5.0); ALKALINE PHOSPHATASE 61 U/L (38-126); ANION GAP 9 (5-19); ASPARTATE AMINO TRANSFERASE 21 U/L (14-36); BILIRUBIN,DIRECT 0.1 mg/dL (0.0-0.4); BILIRUBIN,TOTAL 0.3 mg/dL (0.2-1.3); BLOOD UREA NITROGEN 10 mg/dL (7-20); CALCIUM 9.4 mg/dL (8.4-10.2); CARBON DIOXIDE 28 mmol/L (22-30); CHLORIDE 101 mmol/L (98-107); GLUCOSE 80 mg/dL (75-110); TOTAL PROTEIN 7.2 g/dL (6.3-8.2)
[2019-01-28] MEDS ORDERED: ACETAMINOPHEN 325 MG TABLET PO ONE (20:36)
[2019-01-28] MEDS ORDERED: PROMETHAZINE HCL 25 MG TABLET PO ONE (20:37)
[2019-01-28] MEDS ORDERED: FAMOTIDINE 20 MG TABLET PO ONE (20:37)
--- NOTE | 2019-01-28 20:38 | ER Document Report ---
ED GI/ - General Chief Complaint: Abdominal Pain Stated Complaint: ABDOMINAL PAIN Time Seen by Provider: 01/28/19 18:26 Primary Care Provider: MIKY VARGHESE PA [Primary Care Provider] - Follow up as needed Mode of Arrival: Wheelchair Notes: Patient is a 24-year-old female that comes to the emergency department for chief complaint of abdominal pain for the past several days. Pain is intermittent, located in the middle of the abdomen, sometimes is sharp and nauseating. Patient states she had a lot of diarrhea one day but this resolved and she has not had any today. She denies vomiting, fever, dysuria, flank pain. She states she does have some vaginal discharge but denies vaginal bleeding. She states she is unsure if she is . LMP about 2 weeks ago. She denies any daily medications, surgeries, or diagnosed medical history. TRAVEL OUTSIDE OF THE [place] IN LAST 30 DAYS: No - Related Data Allergies/Adverse Reactions: acetaminophen [From Percocet] Allergy (Verified 01/28/19 18:29) oxycodone [From Percocet] Allergy (Verified 01/28/19 18:29) Past Medical History - General Information source: Patient - Social History Smoking Status: Never Smoker Frequency of alcohol use: Social Drug Abuse: None Lives with: Family Family History: Reviewed & Not Pertinent Patient has suicidal ideation: No Patient has homicidal ideation: No Renal/ Medical History: Denies: Hx Peritoneal Dialysis Surgical Hx: Negative - Immunizations Immunizations up to date: Yes Hx Diphtheria, Pertussis, Tetanus Vaccination: Yes Review of Systems - Review of Systems Constitutional: No symptoms reported EENT: No symptoms reported Cardiovascular: No symptoms reported Respiratory: No symptoms reported Gastrointestinal: See HPI Genitourinary: See HPI Female Genitourinary: See HPI Musculoskeletal: No symptoms reported Skin: No symptoms reported Hematologic/Lymphatic: No symptoms reported Neurological/Psychological: No symptoms reported Physical Exam - Vital signs Vitals: Temp Pulse Resp BP Pulse Ox 98.2 F 99 20 143/58 H 99 01/28/19 18:01 01/28/19 18:01 01/28/19 18:01 01/28/19 18:01 01/28/19 18:01 - Notes Notes: GENERAL: Alert, interacts well. No acute distress. HEAD: Normocephalic, atraumatic. EYES: Pupils equal, round, and reactive to light. Extraocular movements intact. ENT: Oral mucosa moist, tongue midline. Oropharynx unremarkable. Airway patent. LUNGS: Clear to auscultation bilaterally, no wheezes, rales, or rhonchi. No respiratory distress. HEART: Regular rate and rhythm. No murmur ABDOMEN: There is generalized lower abdominal tenderness, nonspecific, no guarding, no rigidity, no rebound tenderness. Bowel sounds present. GENITOURINARY: No bleeding, moderate amount of vaginal discharge on speculum exam, no cervical motion tenderness, no lesions, otherwise unremarkable. Exam performed with Nanda MALLORY at bedside. EXTREMITIES: Moves all 4 extremities spontaneously. No edema, normal radial and dorsalis pedis pulses bilaterally. No cyanosis. BACK: no cervical, thoracic, lumbar midline tenderness. No saddle anesthesia, normal distal neurovascular exam. Moves all extremities in full range of motion. NEUROLOGICAL: Alert and oriented x3. Normal speech. Cranial nerves II through X II grossly intact. PSYCH: Normal affect, normal mood. SKIN: Warm, dry, normal turgor. No rashes or lesions noted. Course - Re-evaluation Re-evalutation: CBC, chemistry generally unremarkable, urine nonspecific, hCG negative. Pelvic exam and wet mount indicate pelvic infection, confirmed with positive chlamydia testing. Discussed with patient in detail. Patient will be treated with antibiotics here and at home, discussed partner treatment, recommendations, follow-up, return precautions. Patient states understanding and agreement. - Vital Signs Vital signs: Temp Pulse Resp BP Pulse Ox 97.9 F 76 18 142/64 H 100 01/28/19 22:09 01/28/19 22:09 01/28/19 22:09 01/28/19 22:09 01/28/19 22:09 - Laboratory Result Diagrams: 01/28/19 18:40 01/28/19 18:40 Laboratory results interpreted by me: 01/28/19 01/28/19 01/28/19 18:40 18:40 18:40 Lipase 304.8 H Urine Protein 30 H Chlamydia DNA (PCR) DETECTED H Discharge - Discharge Clinical Impression: Vaginal discharge Abdominal pain Qualifiers: Abdominal location: lower abdomen, unspecified Qualified Code(s): R10.30 - Lower abdominal pain, unspecified Condition: Stable Disposition: HOME, SELF-CARE Additional Instructions: You are positive for chlamydia. You have been treated for this, complete t reatment with the Flagyl at home. Any partner needs to be treated as well. Avoid sexual intercourse for a week. Follow-up with primary care for additional management. Return for any concerning symptoms including fever, severe worsening pain, vomiting, or any other concerning symptoms. Prescriptions: Metronidazole [Flagyl 500 mg Tablet] 500 mg PO BID 7 Days #14 tablet Referrals: MIKY VARGHESE PA [Primary Care Provider] - Follow up as needed
[2019-01-28 20:47] LABS: CHLAM PCR DETECTED (NOT DETECT)
[2019-01-28 21:39] LABS: BACTERIA (WET MOUNT) 4+ BACTERIA SEEN; EPITHELIALS (WET MOUNT) 3+ EPITHELIALS SEEN; T.VAGINALIS (WET MOUNT) NO TRICHOMONAS SEEN; WBCS (WET MOUNT) 3+ WBCS SEEN; YEAST (WET MOUNT) NO YEAST SEEN
[2019-01-28] MEDS ORDERED: AZITHROMYCIN 250 MG TABLET PO ONE (21:57)
[2019-01-28] MEDS ORDERED: LIDOCAINE 1% INJ-PF (10 MG/ML) 30 ML SDV INJ ONE (21:57)
[2019-01-28] MEDS ORDERED: CEFTRIAXONE INJ 250 MG VIAL IM ONE (21:57)
[2019-01-28 22:09] VITALS: BP 142/64
== END 2019-01-28 22:10 | disposition home or self-care (01) ==
LOC: ER 17:56
DX: A56.11 Chlamydial female pelvic inflammatory disease (principal); R10.9 Unspecified abdominal pain; R10.819 Abdominal tenderness, unspecified site; R11.0 Nausea; Z88.8 Allergy status to other drugs, medicaments and biological substances; Z88.6 Allergy status to analgesic agent; Z88.5 Allergy status to narcotic agent
CPT/HCPCS: 99284; 96372; 36415; 87210; 83690; 84703; 85025; 80053; 81001; 87491; 87591; J3490; J0696

== ENCOUNTER 2019-04-14 18:58 | Emergency (ER) | payer SELFPAY ==
--- NOTE | 2019-04-14 19:43 | ER Document Report ---
ED Medical Screen (RME) - General Chief Complaint: Abdominal Pain Stated Complaint: ABDOMINAL PAIN Time Seen by Provider: 04/14/19 19:33 Primary Care Provider: MIKY VARGHSEE PA [Primary Care Provider] - Follow up as needed Notes: Patient is a 24-year-old female who presents emergency department with a chief complaint of generalized abdominal pain. Patient reports her last menstrual cycle was March 15 and she took a home test yesterday which was positive. Patient denies vaginal bleeding or vaginal discharge that is different from her normal. Patient reports she is having increased urinary frequency. Patient reports nausea without vomiting or diarrhea. Patient denies fever. Patient reports earlier today she ate sushi and is now concerned because she is having generalized abdominal pain and her boyfriend told her you are not supposed to eat sushi while . TRAVEL OUTSIDE OF THE [place] IN LAST 30 DAYS: No - Related Data Allergies/Adverse Reactions: acetaminophen [From Percocet] Allergy (Verified 01/28/19 18:29) oxycodone [From Percocet] Allergy (Verified 01/28/19 18:29) Past Medical History Renal/ Medical History: Denies: Hx Peritoneal Dialysis - Immunizations Immunizations up to date: Yes Hx Diphtheria, Pertussis, Tetanus Vaccination: Yes Physical Exam - Vital signs Vitals: Temp Pulse Resp BP Pulse Ox 98.6 F 108 H 22 H 134/74 H 100 04/14/19 19:21 04/14/19 19:21 04/14/19 19:21 04/14/19 19:21 04/14/19 19:21 - Abdominal Inspection: Normal Distension: No distension Bowel sounds: Normal Tenderness: Nontender Organomegaly: No organomegaly Course - Re-evaluation Re-evalutation: 04/14/19 19:42 We will obtain a urinalysis as the patient reports urinary frequency. I have greeted and performed a rapid initial assessment of this patient. A comprehensive ED assessment and evaluation of the patient, analysis of test results and completion of the medical decision making process will be conducted by additional ED providers. - Vital Signs Vital signs: Temp Pulse Resp BP Pulse Ox 98.6 F 108 H 22 H 134/74 H 100 04/14/19 19:21 04/14/19 19:21 04/14/19 19:21 04/14/19 19:21 04/14/19 19:21 Doctor's Discharge - Discharge Referrals: MIKY VARGHESE PA [Primary Care Provider] - Follow up as needed
[2019-04-14 20:39] LABS: APPEARANCE,URINE CLEAR; BILIRUBIN,URINE NEGATIVE (NEGATIVE); COLOR,URINE YELLOW; GLUCOSE, URINE NEGATIVE (NEGATIVE); KETONES,URINE TRACE mg/dL (NEGATIVE); LEUKOCYTE ESTERASE,URINE NEGATIVE (NEGATIVE); NITRITE,URINE NEGATIVE (NEGATIVE); PROTEIN,URINE NEGATIVE (NEGATIVE); URINE SPECIFIC GRAVITY 1.021
[2019-04-14 21:56] LABS: CHLAM PCR DETECTED (NOT DETECT)
[2019-04-14] MEDS ORDERED: AZITHROMYCIN 250 MG TABLET PO ONE (23:04)
--- NOTE | 2019-04-14 23:31 | ER Document Report ---
ED GI/ - General Chief Complaint: Abdominal Pain Stated Complaint: ABDOMINAL PAIN Time Seen by Provider: 04/14/19 19:33 Primary Care Provider: MIKY VARGHESE PA [PHYSICIAN BOOK EDITOR] - Follow up as needed Notes: 24-year-old woman presents to the emergency department with a history of concerns regarding some abdominal pain and also had eaten some sushi tonight. Because of her is concerned that so she may have created a problem. Nurse tells me that the patient is concerned that she may have chlamydia. She does not want her significant other to be aware. TRAVEL OUTSIDE OF THE [place] IN LAST 30 DAYS: No - Related Data Allergies/Adverse Reactions: acetaminophen [From Percocet] Allergy (Verified 01/28/19 18:29) oxycodone [From Percocet] Allergy (Verified 01/28/19 18:29) Past Medical History - Social History Smoking Status: Never Smoker Family History: Reviewed & Not Pertinent Patient has suicidal ideation: No Patient has homicidal ideation: No Renal/ Medical History: Denies: Hx Peritoneal Dialysis - Immunizations Immunizations up to date: Yes Hx Diphtheria, Pertussis, Tetanus Vaccination: Yes Review of Systems - Review of Systems Notes: Constitutional: Negative for fever. HENT: Negative for sore throat. Eyes: Negative for visual changes. Cardiovascular: Negative for chest pain. Respiratory: Negative for shortness of breath. Gastrointestinal: + Abdominal pain, + nausea, no vomiting or diarrhea. Genitourinary: Negative for dysuria. Musculoskeletal: Negative for back pain. Skin: Negative for rash. Neurological: Negative for headaches, weakness or numbness. 10 point ROS negative except as marked above and in HPI. Physical Exam - Vital signs Vitals: Temp Pulse Resp BP Pulse Ox 98.6 F 108 H 22 H 134/74 H 100 04/14/19 19:21 04/14/19 19:21 04/14/19 19:21 04/14/19 19:21 04/14/19 19:21 - Notes Notes: PHYSICAL EXAMINATION: Physical Exam: General: Well-nourished well-developed 24-year-old in no acute distress HEENT: NC/AT, pupils equal round and reactive to light, MM moist,nares clear, Neck: supple, no adenopathy, no masses. Lungs: clear, no wheezing, no rales no rhonchi CVS: Regular rate and rhythm no murmur gallop or rub Abdomen: Soft active nontender, no masses, no hepatosplenomegaly Ext: No edema clubbing or cyanosis. Neuro: Alert and responsive, moving all 4 extremities on command, cranial nerves intact. Skin: Intact no open lesions, no rash PSYCH: Normal mood, normal affect. Course - Re-evaluation Re-evalutation: 04/14/19 23:30 Patient test was positive for chlamydia, she is being treated with 1 g of Zithromax. I explained to her that she has a risk of re-exposure if her significant other is also infected. I suggested that she contact him and have him treated as well. The patient is unable to confirm her plans. - Vital Signs Vital signs: Temp Pulse Resp BP Pulse Ox 98.6 F 108 H 22 H 134/74 H 100 04/14/19 19:21 04/14/19 19:21 04/14/19 19:21 04/14/19 19:21 04/14/19 19:21 - Laboratory Laboratory results interpreted by me: 04/14/19 04/14/19 04/14/19 20:10 20:10 20:10 Urine Ketones TRACE H Urine Urobilinogen 2.0 H Urine HCG, Qual POSITIVE H Chlamydia DNA (PCR) DETECTED H 04/14/19 23:31 I have reviewed laboratory data and used this information for the treatment decisions regarding the patient. Discharge - Discharge Clinical Impression: Chlamydia infection, First trimester Condition: Good Disposition: HOME, SELF-CARE Instructions: ([facility]) Additional Instructions: Please follow-up with your doctor or the health department regarding your , please start multivitamins and care. Follow-up with the emergency department if you have new developments or other concerns. Referrals: MIKY VARGHESE PA [PHYSICIAN BOOK EDITOR] - Follow up as needed
[2019-04-14 23:45] VITALS: BP 127/85
== END 2019-04-14 23:43 | disposition home or self-care (01) ==
LOC: ER 18:58
DX: O98.811 Other maternal infectious and parasitic diseases complicating pregnancy, first trimester (principal); A74.9 Chlamydial infection, unspecified; O26.891 Other specified pregnancy related conditions, first trimester; R11.0 Nausea; Z3A.00 Weeks of gestation of pregnancy not specified; Z88.6 Allergy status to analgesic agent; Z88.5 Allergy status to narcotic agent
CPT/HCPCS: 81001; 81025; 87491; 87591; 99284

== ENCOUNTER 2019-04-27 12:40 | Emergency (ER) | payer MEDICAID ==
[2019-04-27 13:05] VITALS: BP 110/66
--- NOTE | 2019-04-27 13:07 | ER Document Report ---
ED Medical Screen (RME) - General Chief Complaint: Abdominal Pain Stated Complaint: ABDOMINAL PAIN Time Seen by Provider: 04/27/19 13:03 Primary Care Provider: RM PANDA MD [Primary Care Provider] - Follow up as needed Mode of Arrival: Ambulatory Information source: Patient Notes: Otherwise healthy 24-year-old female presents the emergency department at approximately 6 weeks gestation with complaints of low abdominal pain and abnormal vaginal discharge. Patient reports she is concerned she may have been exposed to a sexually transmitted disease. Patient reports her symptoms started a few days ago. She denies any vaginal bleeding, nausea, vomiting or fever. I have greeted and performed a rapid initial assessment of this patient. A comprehensive ED assessment and evaluation of the patient, analysis of test results and completion of the medical decision making process will be conducted by additional ED providers. I have specifically instructed the patient or family members with the patient to immediately return to any nursing staff should anything change in the patient's condition or with their chief complaint. TRAVEL OUTSIDE OF THE [place] IN LAST 30 DAYS: No - Related Data Allergies/Adverse Reactions: acetaminophen [From Percocet] Allergy (Verified 01/28/19 18:29) oxycodone [From Percocet] Allergy (Verified 01/28/19 18:29) Past Medical History Renal/ Medical History: Denies: Hx Peritoneal Dialysis - Immunizations Immunizations up to date: Yes Hx Diphtheria, Pertussis, Tetanus Vaccination: Yes Physical Exam - Vital signs Vitals: Temp Pulse Resp BP Pulse Ox 98.5 F 102 H 16 110/66 97 04/27/19 13:03 04/27/19 13:03 04/27/19 13:03 04/27/19 13:03 04/27/19 13:03 Course - Vital Signs Vital signs: Temp Pulse Resp BP Pulse Ox 98.5 F 102 H 16 110/66 97 04/27/19 13:03 04/27/19 13:03 04/27/19 13:03 04/27/19 13:03 04/27/19 13:03 Doctor's Discharge - Discharge Referrals: RM PANDA MD [Primary Care Provider] - Follow up as needed
[2019-04-27 14:00] LABS: ABSOLUTE EOSINOPHILS # (AUTO) 0.1 10^3/uL (0.0-0.6); ABSOLUTE LYMPHOCYTES (AUTO) 1.9 10^3/uL (0.5-4.7); ABSOLUTE MONOCYTES (AUTO) 0.4 10^3/uL (0.1-1.4); ABSOLUTE NEUT (AUTO) 4.1 10^3/uL (1.7-8.2); BASOPHILS % (AUTO) 0.5 % (0-2); EOSINOPHILS % (AUTO) 1.7 % (0-6); HEMATOCRIT 36.5 % (36.0-47.0); HEMOGLOBIN 12.5 g/dL (12.0-15.5); LYMPHOCYTES % (AUTO) 29.5 % (13-45); MEAN CORPUSCULAR HEMOGLOBIN 28.3 pg (27.0-33.4); MEAN CORPUSCULAR HGB CONC 34.3 g/dL (32.0-36.0); MEAN CORPUSCULAR VOLUME 82 fl (80-97); MONOCYTES % (AUTO) 5.9 % (3-13); PLATELET COUNT 264 10^3/uL (150-450); RED BLOOD COUNT 4.43 10^6/uL (3.72-5.28); RED CELL DISTRIBUTION WIDTH 13.3 % (11.5-14.0); SEGMENTED NEUTROPHILS % (AUTO) 62.4 % (42-78); TOTAL CELLS COUNTED % (AUTO) 100 %; WHITE BLOOD COUNT 6.6 10^3/uL (4.0-10.5)
[2019-04-27 14:01] LABS: APPEARANCE,URINE SLIGHTLY-CLOUDY; BILIRUBIN,URINE NEGATIVE (NEGATIVE); COLOR,URINE YELLOW; GLUCOSE, URINE NEGATIVE (NEGATIVE); KETONES,URINE NEGATIVE (NEGATIVE); LEUKOCYTE ESTERASE,URINE NEGATIVE (NEGATIVE); NITRITE,URINE NEGATIVE (NEGATIVE); PROTEIN,URINE NEGATIVE (NEGATIVE); URINE SPECIFIC GRAVITY 1.027; UROBILINOGEN,URINE NEGATIVE mg/dL (<2.0)
[2019-04-27 14:15] LABS: ALBUMIN 4.2 g/dL (3.5-5.0); ALKALINE PHOSPHATASE 55 U/L (38-126); ANION GAP 9 (5-19); ASPARTATE AMINO TRANSFERASE 21 U/L (14-36); BILIRUBIN,DIRECT 0.2 mg/dL (0.0-0.4); BILIRUBIN,TOTAL 0.3 mg/dL (0.2-1.3); BLOOD UREA NITROGEN 11 mg/dL (7-20); CALCIUM 9.4 mg/dL (8.4-10.2); CARBON DIOXIDE 26 mmol/L (22-30); CHLORIDE 103 mmol/L (98-107); GLUCOSE 97 mg/dL (75-110); POTASSIUM 4.7 mmol/L (3.6-5.0); TOTAL PROTEIN 7.5 g/dL (6.3-8.2)
--- NOTE | 2019-04-27 14:21 | ER Document Report ---
ED GI/ - General Chief Complaint: Abdominal Pain Stated Complaint: ABDOMINAL PAIN Time Seen by Provider: 04/27/19 13:03 Primary Care Provider: RM PANDA MD [ACTIVE STAFF] - Follow up as needed Mode of Arrival: Ambulatory Notes: Patient is a 24-year-old female G1, P0 presents emergency department with a chief complaint of possible STD exposure. Patient reports she is about 6 weeks . Patient reports she was seen here on April 14 and diagnosed with chlamydia. Patient reports she was treated with an antibiotic at that time. Patient reports she continued to have sexual intercourse with her partner even though he was not tested. She reports that they were using condoms but then he stopped. She reports that over the past few days she has had an increase in "creamy," vaginal discharge. She does report some lower abdominal cramping that is generalized but states this has been present since she found she is . Patient denies vaginal bleeding. Patient denies urinary symptoms or fever. Patient reports the discharge is been present for about 3 days. Patient concerned that she was re-exposed to the chlamydia. TRAVEL OUTSIDE OF THE [place] IN LAST 30 DAYS: No - Related Data Allergies/Adverse Reactions: acetaminophen [From Percocet] Allergy (Verified 01/28/19 18:29) oxycodone [From Percocet] Allergy (Verified 01/28/19 18:29) Past Medical History - General Information source: Patient - Social History Smoking Status: Unknown if Ever Smoked Frequency of alcohol use: None Drug Abuse: None Lives with: Spouse/Significant other Family History: Reviewed & Not Pertinent Patient has suicidal ideation: No Patient has homicidal ideation: No - Past Medical History Cardiac Medical History: Reports: None Pulmonary Medical History: Reports: None EENT Medical History: Reports: None Neurological Medical History: Reports: None Endocrine Medical History: Reports: None Renal/ Medical History: Reports: None. Denies: Hx Peritoneal Dialysis Malignancy Medical History: Reports: None GI Medical History: Reports: None Musculoskeletal Medical History: Reports None Skin Medical History: Reports None Psychiatric Medical History: Reports: None Traumatic Medical History: Reports: None Infectious Medical History: Reports: None Surgical Hx: Negative - Immunizations Immunizations up to date: Yes Hx Diphtheria, Pertussis, Tetanus Vaccination: Yes Review of Systems - Review of Systems Constitutional: No symptoms reported EENT: No symptoms reported Cardiovascular: No symptoms reported Respiratory: No symptoms reported Gastrointestinal: No symptoms reported Genitourinary: No symptoms reported Female Genitourinary: See HPI Musculoskeletal: No symptoms reported Skin: No symptoms reported Hematologic/Lymphatic: No symptoms reported Neurological/Psychological: No symptoms reported Physical Exam - Vital signs Vitals: Temp Pulse Resp BP Pulse Ox 98.5 F 102 H 16 110/66 97 04/27/19 13:03 04/27/19 13:03 04/27/19 13:03 04/27/19 13:03 04/27/19 13:03 Interpretation: Normal - Notes Notes: GENERAL: Well-appearing, well-nourished and in no acute distress. HEAD: Atraumatic, normocephalic. EYES: Pupils equal round and reactive to light, extraocular movements intact, sclera anicteric, conjunctiva are normal. ENT: Nares patent, oropharynx clear without exudates. Moist mucous membranes. NECK: Normal range of motion, supple without lymphadenopathy or JVD. LUNGS: Breath sounds clear to auscultation bilaterally and equal. No wheezes rales or rhonchi. HEART: Regular rate and rhythm without murmurs, rubs or gallops. ABDOMEN: Soft, nontender, normoactive bowel sounds. No guarding, no rebound. No masses appreciated. BACK: No cervical, thoracic, lumbar midline tenderness. No saddle anesthesia, normal distal neurovascular exam. GENITOURINARY: Deferred. EXTREMITIES: Normal range of motion, no pitting or edema. No clubbing or cyanosis. NEUROLOGICAL: Cranial nerves II through XII grossly intact. Normal speech, normal gait. PSYCH: Normal mood, normal affect. SKIN: Warm, Dry, normal turgor, no rashes or lesions noted. Course - Re-evaluation Re-evalutation: 04/27/19 15:07 Pelvic specimens are unremarkable without yeast, bacterial vaginosis, or trichomonas. I have prophylactically treated the patient for gonorrhea and chlamydia. Patient to refrain from sexual intercourse until follow-up with the health department at the beginning of May. Patient given strict return precautions to include vaginal bleeding, abdominal pain, fever or any new or worsening symptoms. I did inform the patient to make her partner or partners aware of the recent infection so they can be treated, and that although they were treated they cannot have sexual intercourse for at least 2 weeks. I did explain the importance of being treated with the patient as she is and this can cause increased risk for miscarriage when she has a pelvic infection. Abdominal examination did not reveal tenderness. - Vital Signs Vital signs: Temp Pulse Resp BP Pulse Ox 98.5 F 102 H 16 110/66 97 04/27/19 13:03 04/27/19 13:03 04/27/19 13:03 04/27/19 13:03 04/27/19 13:03 - Laboratory Result Diagrams: 04/27/19 13:30 04/27/19 13:30 Laboratory results interpreted by me: 04/27/19 13:30 Urine Ascorbic Acid 40 H Urine HCG, Qual POSITIVE H 04/27/19 15:07 Laboratory 04/27/19 04/27/19 04/27/19 13:30 13:30 13:30 WBC 6.6 RBC 4.43 Hgb 12.5 Hct 36.5 MCV 82 MCH 28.3 MCHC 34.3 RDW 13.3 Plt Count 264 Lymph % (Auto) 29.5 [place] % (Auto) 5.9 Eos % (Auto) 1.7 Baso % (Auto) 0.5 Absolute Neuts (auto) 4.1 Absolute Lymphs (auto) 1.9 Absolute Monos (auto) 0.4 Absolute Eos (auto) 0.1 Absolute Basos (auto) 0.0 Seg Neutrophils % 62.4 Sodium 138.4 Potassium 4.7 Chloride 103 Carbon Dioxide 26 Anion Gap 9 BUN 11 Creatinine 0.74 Est GFR ( Amer) > 60 Est GFR (MDRD) Non-Af > 60 Glucose 97 Calcium 9.4 Total Bilirubin 0.3 Direct Bilirubin 0.2 Neonat Total Bilirubin Not Reportable Neonat Direct Bilirubin Not Reportable Neonat Indirect Bili Not Reportable AST 21 ALT 18 Alkaline Phosphatase 55 Total Protein 7.5 Albumin 4.2 Urine Color YELLOW Urine Appearance SLIGHTLY-CLOUDY Urine pH 5.0 Ur Specific [place] 1.027 Urine Protein NEGATIVE Urine Glucose (UA) NEGATIVE Urine Ketones NEGATIVE Urine Blood NEGATIVE Urine Nitrite NEGATIVE Urine Bilirubin NEGATIVE Urine Urobilinogen NEGATIVE Ur Leukocyte Esterase NEGATIVE Urine WBC (Auto) 4 Urine RBC (Auto) 2 Squamous Epi Cells Auto 10 Urine Mucus (Auto) MANY Urine Ascorbic Acid 40 H Urine HCG, Qual POSITIVE H Epi Cells (Wet Prep) Trichomonas (Wet Prep) Vaginal WBC Vaginal Yeast 04/27/19 14:41 WBC RBC Hgb Hct MCV MCH MCHC RDW Plt Count Lymph % (Auto) [place] % (Auto) Eos % (Auto) Baso % (Auto) Absolute Neuts (auto) Absolute Lymphs (auto) Absolute Monos (auto) Absolute Eos (auto) Absolute Basos (auto) Seg Neutrophils % Sodium Potassium Chloride Carbon Dioxide Anion Gap BUN Creatinine Est GFR ( Amer) Est GFR (MDRD) Non-Af Glucose Calcium Total Bilirubin Direct Bilirubin Neonat Total Bilirubin Neonat Direct Bilirubin Neonat Indirect Bili AST ALT Alkaline Phosphatase Total Protein Albumin Urine Color Urine Appearance Urine pH Ur Specific [place] Urine Protein Urine Glucose (UA) Urine Ketones Urine Blood Urine Nitrite Urine Bilirubin Urine Urobilinogen Ur Leukocyte Esterase Urine WBC (Auto) Urine RBC (Auto) Squamous Epi Cells Auto Urine Mucus (Auto) Urine Ascorbic Acid Urine HCG, Qual Epi Cells (Wet Prep) 3+ EPITHELIALS SEEN Trichomonas (Wet Prep) NO TRICHOMONAS SEEN Vaginal WBC 1+ WBCS SEEN Vaginal Yeast NO YEAST SEEN Procedures - Pelvic Exam Pelvic exam Time completed: 14:40 Cultures obtained: Yes Wet prep obtained: Yes Bimanual exam performed: No Witnessed by: Linden RODRÍGUEZ Notes: 04/27/19 14:45 External genitalia was unremarkable. Patient tolerated the insertion of the speculum well. I was able to visualize the cervix which was closed. There is no bleeding within the vaginal vault or around the cervix. Patient did have a thick white discharge, odorous. Patient tolerated the movement of the speculum around the cervix and vagina without tenderness. Discharge - Discharge Clinical Impression: Exposure to STD Condition: Stable Disposition: HOME, SELF-CARE Additional Instructions: *Today you are seen in the emergency department for possible STD exposure. We did prophylactically treat you for gonorrhea and chlamydia. Do not have sexual intercourse until you are retested and this is negative. You can get retested when you go to your appointment at the health department at the beginning of May. Please have your partner or partners checked and treated. Having a pelvic infection or sexually transmitted disease increases your risk for miscarriage. Please seek medical attention if you develop fever, severe pelvic pain, vaginal bleeding, abdominal pain or any new or worsening symptoms. Please make sure you are taking a vitamin. If you are in pain you can take Tylenol, this is the only medication that you can take. You need to use protection every time you have sex. Failure to do so can result in transmission of infections or unintended . You have been treated for an sexually transmitted infection (STI) today. All of your partners should be tested and treated as they are also likely to be infected. Please return if you develop abdominal pain, fever, persistent vomiting, or any other symptoms that are concerning to you. Referrals: RM PANDA MD [ACTIVE STAFF] - Follow up as needed
[2019-04-27] MEDS ORDERED: AZITHROMYCIN 250 MG TABLET PO ONE (14:52)
[2019-04-27] MEDS ORDERED: CEFTRIAXONE INJ 250 MG VIAL IM ONE (14:52)
[2019-04-27] MEDS ORDERED: LIDOCAINE 1% INJ-PF (10 MG/ML) 30 ML SDV INJ ONE (14:52)
[2019-04-27 14:55] LABS: EPITHELIALS (WET MOUNT) 3+ EPITHELIALS SEEN; T.VAGINALIS (WET MOUNT) NO TRICHOMONAS SEEN; WBCS (WET MOUNT) 1+ WBCS SEEN; YEAST (WET MOUNT) NO YEAST SEEN
[2019-04-27 16:20] LABS: CHLAM PCR NOT DETECTED (NOT DETECT)
[2019-04-27] MEDS ORDERED: ONDANSETRON 4 MG TAB.RAPDIS PO ONE (16:26)
== END 2019-04-27 16:40 | disposition home or self-care (01) ==
LOC: ER 12:40
DX: Z20.2 Contact with and (suspected) exposure to infections with a predominantly sexual mode of transmission (principal); O26.899 Other specified pregnancy related conditions, unspecified trimester; N89.8 Other specified noninflammatory disorders of vagina; R10.30 Lower abdominal pain, unspecified; Z3A.00 Weeks of gestation of pregnancy not specified; Z86.19 Personal history of other infectious and parasitic diseases; Z88.8 Allergy status to other drugs, medicaments and biological substances; Z88.6 Allergy status to analgesic agent; Z88.5 Allergy status to narcotic agent
CPT/HCPCS: 99283; 96372; 36415; 87210; 85025; 81025; 80053; 81001; 87491; 87591; Q0144; S0119; J3490; J0696

== ENCOUNTER 2019-06-18 19:56 | Emergency (ER) | payer MEDICAID ==
--- NOTE | 2019-06-18 20:43 | ER Document Report ---
ED Medical Screen (RME) - General Chief Complaint: Vaginal Bleeding Stated Complaint: VAGINAL SPOTTING/14 WKS PREGANT Time Seen by Provider: 06/18/19 20:41 Mode of Arrival: Ambulatory Information source: Patient Notes: Patient is currently 14 weeks . Patient reports vaginal spotting this evening with some dysuria. Patient does complain of low back pain. I have greeted and performed a rapid initial assessment of this patient. A comprehensive ED assessment and evaluation of the patient, analysis of test results and completion of the medical decision making process will be conducted by additional ED providers. TRAVEL OUTSIDE OF THE [place] IN LAST 30 DAYS: No - Related Data Allergies/Adverse Reactions: acetaminophen [From Percocet] Allergy (Verified 01/28/19 18:29) oxycodone [From Percocet] Allergy (Verified 01/28/19 18:29) Past Medical History Renal/ Medical History: Denies: Hx Peritoneal Dialysis - Immunizations Immunizations up to date: Yes Hx Diphtheria, Pertussis, Tetanus Vaccination: Yes Physical Exam - Vital signs Vitals: Temp Pulse Resp BP Pulse Ox 97.8 F 107 H 20 140/77 H 100 06/18/19 20:02 06/18/19 20:02 06/18/19 20:02 06/18/19 20:02 06/18/19 20:02 - General General appearance: Appears well, Alert In distress: None - Back Back: Tender - Lower lumbar paraspinal Course - Vital Signs Vital signs: Temp Pulse Resp BP Pulse Ox 97.8 F 107 H 20 140/77 H 100 06/18/19 20:02 06/18/19 20:02 06/18/19 20:02 06/18/19 20:02 06/18/19 20:02
--- NOTE | 2019-06-18 22:01 | ER Document Report ---
ED General - General Mode of Arrival: Ambulatory TRAVEL OUTSIDE OF THE [place] IN LAST 30 DAYS: No <MARINO FLORES - Last Filed: 06/19/19 03:06> <AYAH GARCIA - Last Filed: 06/19/19 04:44> - General Chief Complaint: Vaginal Bleeding Stated Complaint: VAGINAL SPOTTING/14 WKS PREGANT Time Seen by Provider: 06/18/19 20:41 - HPI Notes: 24-year-old female G1, P0 LMP 03/12/19 presents with scant vaginal bleeding 1 episode today consisting of scant drops dark blood noticed when she wiped which has since resolved and approximately 2 days of dysuria, urgency, frequency. Says that she has had chronic lower back pain bilaterally times few years which has not been any different recently. Patient has had OB care at outpatient facility without any complications so far and had prior ultrasound showing IUP with gestational age matching LMP as per patient. Patient endorses some white vaginal discharge of unknown duration at least many weeks. Patient also endorses some mild dyspnea on exertion for past 3 months that she attributed to normal symptoms. Patient denies any prior pregnancies, fever, flank pain, abdominal pain, vomiting, immune compromise, dizziness, syncope, recent antibiotics/prior eval for current symptoms, chest pain, lower extremity edema, travel/surgery/immobility, family hx, change in po intake (MARINO FLORES) - Related Data Allergies/Adverse Reactions: oxycodone [From Percocet] Allergy (Verified 06/18/19 23:54) Past Medical History - General Information source: Patient - Social History Smoking Status: Never Smoker Family History: Reviewed & Not Pertinent Patient has suicidal ideation: No Patient has homicidal ideation: No Renal/ Medical History: Denies: Hx Peritoneal Dialysis - Immunizations Immunizations up to date: Yes Hx Diphtheria, Pertussis, Tetanus Vaccination: Yes <MARINO FLORES - Last Filed: 06/19/19 03:06> Review of Systems <MARINO FLORES - Last Filed: 06/19/19 03:06> - Review of Systems Notes: REVIEW OF SYSTEMS: CONSTITUTIONAL : Denies fever, chills, or sweats. EENT: Denies recent cold/sinus symptoms, denies throat pain CARDIOVASCULAR: Denies chest pain, DANIELLE RESPIRATORY: Denies cough, denies shortness of breath. GASTROINTESTINAL: Denies abdominal pain, nausea/vomiting. GENITOURINARY: -difficulty urinating, +painful urination. FEMALE GENITOURINARY: +abnormal vaginal bleeding, +vaginal discharge. MUSCULOSKELETAL: Denies neck pain, back pain. SKIN: Denies rash or skin lesions. HEMATOLOGIC : Denies easy bruising or bleeding. LYMPHATIC: Denies swollen, enlarged glands. NEUROLOGICAL: Denies headache, denies change in gait. PSYCHIATRIC: Denies anxiety or stress or depression. (MARINO FLORES) Physical Exam <MARINO FLORES - Last Filed: 06/19/19 03:06> - Vital signs Vitals: Temp Pulse Resp BP Pulse Ox 97.8 F 107 H 20 140/77 H 100 06/18/19 20:02 06/18/19 20:02 06/18/19 20:02 06/18/19 20:02 06/18/19 20:02 - Notes Notes: PHYSICAL EXAMINATION: GENERAL: Well-appearing, well-nourished and in no acute distress. HEAD: Atraumatic, normocephalic. EYES: Pupils equal round and appropriate constriction, sclera anicteric, conju nctiva are normal. ENT: nares patent, moist mucous membranes. NECK: Normal range of motion, supple without lymphadenopathy LUNGS: Breath sounds clear to auscultation bilaterally and equal. No wheezes rales or rhonchi. HEART: Regular rhythm, tachycardia of 108, no murmurs/rub/gallops ABDOMEN: Soft, nontender, no guarding, no masses, no CVAT PELVIC: Copious white cottage cheese-like discharge, no blood in vaginal vault, as close with normal inspection, no purulence from eyes, no CMT, no adnexal tenderness or masses, gravid uterus at pubic symphysis EXTREMITIES: Normal range of motion, no pitting or edema. No cyanosis. NEUROLOGICAL: Awake, alert, conversing appropriately, moves all extremities spontaneously. PSYCH: Normal mood, normal affect. SKIN: Warm, Dry, normal turgor, no rashes or lesions noted. (MARINO FLORES) Course - Laboratory Result Diagrams: 06/18/19 21:53 06/18/19 21:53 <MARINO FLORES - Last Filed: 06/19/19 03:06> - Laboratory Result Diagrams: 06/18/19 21:53 06/18/19 21:53 <AYAH GARCIA - Last Filed: 06/19/19 04:44> - Re-evaluation Re-evalutation: 06/18/19 21:57 Painless low-volume and resolved vaginal bleeding in second trimester . experiencing UTI symptoms without any signs of pyelonephritis on history or clinical exam, but given copious discharge consistent with candidal vulvovaginitis and after further discussion may be from contact sensitivity when urine touches friable vaginal mucosa. Blood pressure mildly elevated to 140/77 initially but resolved to normal range without any intervention, unlikely preeclampsia given patient well under 20 weeks gestational age with reliable dates, will ensure that the OB ultrasound matches patient report . Will obtain ultrasound to ensure heartbeat, assess for any sources of bleeding/subchorionic hematoma, obtain type and screen, and treat for UTI and candidal yeast infection. also sending urine and vaginal culture in case of treatment failure and patient return to ED. mild tachycardia on initial vital signs persistent at time of my evaluation without any clinical signs of dehydration. Concern for possible PE given hyper estrogen state and on further questioning patient endorses shortness of breath for few months during , but no signs of hemodynamic instability. 06/18/19 23:25 Unable to rule out PE with d-dimer and thus had extensive conversation with patient and (at patient's request) patient's mother explaining the risk of radiation exposure in , the increased lifetime risk of cancer in the fetus, and the alternate option of not ruling out PE which is certainly a greater risk than the risk of obtaining CTA in . After lengthy discussion patient decided to go forward with CTA, I gave her handout on patient safety information for CT and . 06/19/19 02:35 Due to timing of CTA, unable to rule out subsegmental PE. Had discussion with patient and mother regarding this and gave return precautions given the low suspicion of a clinically significant finding in the subsegmental branches. Patient's heart rate has improved with fluids patient has been running in 90s, currently 95, on monitor. Endorses some lightheadedness when she gets up suddenly from lying down, instructed patient on necessity to increase fluid intake during and on the increased risk of miscarriage and labor with dehydration. Patient signed out to Dr. Garcia pending TSH, U tox, but is greatly improved and will likely be discharged upon completion of labs. (MARINO FLORES) - Vital Signs Vital signs: Temp Pulse Resp BP Pulse Ox 98.2 F 107 H 20 123/71 100 06/19/19 01:36 06/18/19 20:02 06/19/19 01:37 06/19/19 01:37 06/19/19 01:37 - Laboratory Laboratory results interpreted by me: 06/18/19 06/18/19 06/18/19 21:53 21:53 21:53 Hgb 11.9 L Hct 34.5 L D-Dimer Sodium 133.9 L Urine Protein 30 H Urine Ketones TRACE H Urine Urobilinogen 2.0 H Ur Leukocyte Esterase LARGE H 06/18/19 21:53 Hgb Hct D-Dimer 1.00 H Sodium Urine Protein Urine Ketones Urine Urobilinogen Ur Leukocyte Esterase - EKG Interpretation by Me Additional EKG results interpreted by me: 06/19/19 00:29 EKG sinus tachycardia with rate of 103, QTc 440, no significant ST elevations or depressions, no signs of atypia, no significant T wave abnormalities. (DANIEL FLORES) Discharge <MARINO FLORES - Last Filed: 06/19/19 03:06> <AYAH GACRIA - Last Filed: 06/19/19 04:44> - Discharge Clinical Impression: Dehydration, Candidal vulvovaginitis, Spotting, Second trimester UTI (urinary tract infection) Qualifiers: Urinary tract infection type: acute cystitis Hematuria presence: without hematuria Qualified Code(s): N30.00 - Acute cystitis without hematuria Condition: Good Disposition: HOME, SELF-CARE Instructions: Cephalexin ([facility]) Additional Instructions: You were seen in the emergency department with spotting, ultrasound reveals a viable , you are also given IV fluids and prescriptions were written for treatment of urinary tract infection and candidiasis. Please follow-up with your FORENSIC NURSE doctor. Return to the emergency department if your symptoms are worsening or if you have other concerns. HOME CARE INSTRUCTIONS & INFORMATION: Thank you for choosing us for your medical needs. We hope you're satisfied with the care you received. After you leave, you must properly care for your problem and, at the same time, observe its progress. Any condition can change. Some illnesses can change rapidly over hours or days. If your condition worsens, return to the Emergency Department or see your physician promptly. ABOUT YOUR X-RAYS AND EKG'S: If you had an EKG or X-rays taken, they have been read by the Emergency Physician. The X-rays and EKG's will also be read by a Radiologist or Skimmer within 24 hours. If discrepancies are noted, you will be notified by telephone. Please be certain the ED has a correct telephone number & address where you can be reached. Also, realize that some fractures or abnormalities do not show up on initial X-rays. If your symptoms continue, see your physician. ABOUT YOUR LABORATORY TEST: If you had laboratory tests, the results have been reviewed by the Emergency Physician. Some test results (for example cultures) may not be available for several days. You will be contacted if any test result shows you need additional treatment. Please be certain the ED has a correct telephone number and address where you can be reached. ABOUT YOUR MEDICATIONS: You will receive instructions on how to take your medicine on the prescription label you receive. Additional information may be provided by the Pharmacy. If you have questions afterwards, call the ED for clarification or further instructions. Some prescribed medications may cause drowsiness. Do not perform tasks such as driving a car or operating machinery without consulting your Pharmacist. If you feel you need a refill of pain medication, your condition will need re-evaluation. Please do not call for a re fill of any medication. ABOUT YOUR SIGNATURE: Signature of this document acknowledges to followin. Understanding that you received emergency treatment and that you may be released before al medical problems are known or treated. Please be certain the ED has a correct phone number & address where you can be reached. 2. Acknowledgement that you will arrange for follow-up care as recommended. 3. Authorization for the Emergency Physician to provide information to your follow-up Physician in order to maximize your care. AT ANY TIME, IF YOUR SYMPTOMS CHANGE SIGNIFICANTLY OR WORSEN OR YOU DEVELOP NEW SYMPTOMS, RETURN TO THE EMERGENCY DEPARTMENT IMMEDIATELY FOR RE-EVALUATION. OUR GOAL IS TO PROVIDE EXCELLENT MEDICAL CARE! WE HOPE THAT WE HAVE MET YOUR EXPECTATIONS DURING YOUR EMERGENCY DEPARTMENT VISIT AND THAT YOU FEEL YOU HAVE RECEIVED EXCELLENT CARE! Prescriptions: Miconazole Nitrate [Monistat 7] 44 gm VG QHS #7 cmb.[id number].crm Cephalexin Monohydrate [Keflex 500 mg Capsule] 500 mg PO BID #14 capsule
--- NOTE | 2019-06-18 22:08 | RADIOLOGY REPORT (SQ) ---
EXAM DESCRIPTION: US LIMITED COMPLETED DATE/TME: 06/18/2019 9:33 PM CLINICAL HISTORY: abd pain, vaginal bleeding COMPARISON: None. FINDINGS: Limited OB images were submitted. There is a single intrauterine with heart motion of 147 bpm. The placenta is posterior and within normal limits. The biparietal diameter measures 2.8 cm corresponding to 15 weeks of gestation. The head circumference measured 10.5 cm corresponding to 15 weeks of gestation. Abdominal circumference measured 3.5 cm corresponding to 14 weeks and five days of gestation. The composite gestational age is of 14 weeks and five days with an estimated date of delivery December 12, 2019. IMPRESSION: Single live intrauterine of approximately 14 weeks and five days. Follow-up around 20 weeks of gestation recommended for a complete anatomical survey unless clinically indicated sooner.
[2019-06-18 22:24] LABS: ABSOLUTE EOSINOPHILS # (AUTO) 0.1 10^3/uL (0.0-0.6); ABSOLUTE LYMPHOCYTES (AUTO) 2.2 10^3/uL (0.5-4.7); ABSOLUTE MONOCYTES (AUTO) 0.7 10^3/uL (0.1-1.4); ABSOLUTE NEUT (AUTO) 6.5 10^3/uL (1.7-8.2); BASOPHILS % (AUTO) 0.5 % (0-2); EOSINOPHILS % (AUTO) 0.7 % (0-6); HEMATOCRIT 34.5 % (36.0-47.0); HEMOGLOBIN 11.9 g/dL (12.0-15.5); LYMPHOCYTES % (AUTO) 23.5 % (13-45); MEAN CORPUSCULAR HEMOGLOBIN 28.7 pg (27.0-33.4); MEAN CORPUSCULAR HGB CONC 34.5 g/dL (32.0-36.0); MEAN CORPUSCULAR VOLUME 83 fl (80-97); MONOCYTES % (AUTO) 7.2 % (3-13); PLATELET COUNT 255 10^3/uL (150-450); RED BLOOD COUNT 4.15 10^6/uL (3.72-5.28); RED CELL DISTRIBUTION WIDTH 13.5 % (11.5-14.0); SEGMENTED NEUTROPHILS % (AUTO) 68.1 % (42-78); TOTAL CELLS COUNTED % (AUTO) 100 %; WHITE BLOOD COUNT 9.5 10^3/uL (4.0-10.5)
[2019-06-18 22:28] LABS: AMORPHOUS SEDIMENT,URINE TRACE /HPF; APPEARANCE,URINE SLIGHTLY-CLOUDY; BILIRUBIN,URINE NEGATIVE (NEGATIVE); COLOR,URINE YELLOW; GLUCOSE, URINE NEGATIVE (NEGATIVE); KETONES,URINE TRACE mg/dL (NEGATIVE); LEUKOCYTE ESTERASE,URINE LARGE (NEGATIVE); NITRITE,URINE NEGATIVE (NEGATIVE); PROTEIN,URINE 30 mg/dL (NEGATIVE); URINE SPECIFIC GRAVITY 1.028
[2019-06-18] MEDS ORDERED: NORMAL SALINE 1000 ML 1,000 ML IV ONE (22:29)
[2019-06-18 22:34] LABS: INTERNATIONAL RATION (INR) 1.03; PROTHROMBIN TIME 13.5 SEC (11.4-15.4)
[2019-06-18 22:35] LABS: PARTIAL THROMBOPLASTIN TIME 25.5 SEC (23.5-35.8)
[2019-06-18 22:40] LABS: BACTERIA (WET MOUNT) 4+ BACTERIA SEEN; EPITHELIALS (WET MOUNT) 3+ EPITHELIALS SEEN; T.VAGINALIS (WET MOUNT) NO TRICHOMONAS SEEN; WBCS (WET MOUNT) 2+ WBCS SEEN; YEAST (WET MOUNT) BUDDING YEAST SEEN
[2019-06-18 22:52] LABS: ALBUMIN 4.2 g/dL (3.5-5.0); ALKALINE PHOSPHATASE 50 U/L (38-126); ANION GAP 9 (5-19); ASPARTATE AMINO TRANSFERASE 25 U/L (14-36); BILIRUBIN,TOTAL 0.2 mg/dL (0.2-1.3); BLOOD UREA NITROGEN 9 mg/dL (7-20); CALCIUM 9.4 mg/dL (8.4-10.2); CARBON DIOXIDE 23 mmol/L (22-30); CHLORIDE 102 mmol/L (98-107); GLUCOSE 77 mg/dL (75-110); POTASSIUM 4.2 mmol/L (3.6-5.0); TOTAL PROTEIN 7.3 g/dL (6.3-8.2)
[2019-06-19 00:13] LABS: CHLAM PCR NOT DETECTED (NOT DETECT)
[2019-06-19] MEDS ORDERED: NORMAL SALINE 1000 ML 1,000 ML IV ONE (00:31)
--- NOTE | 2019-06-19 00:37 | RADIOLOGY REPORT (SQ) ---
EXAM DESCRIPTION: CT CHEST ANGIOGRAPHY WITHOUT THEN WITH IV CONTRAST COMPLETED DATE/TME: 06/18/2019 23:17 CLINICAL HISTORY: 24 years, Female, 2nd trimester sob tachycardia +dimer COMPARISON: None. TECHNIQUE: 537 Images stored on PACS. All CT scanners at this facility use dose modulation, iterative reconstruction, and/or weight based dosing when appropriate to reduce radiation dose to as low as reasonably achievable (ALARA). Axial CTA images with coronal and sagittal MIPS [facility]: Dose Right [facility]: CareDose [facility]: Dose Right [facility]: Teradose 4D [facility]: [employer] LIMITATIONS: None. FINDINGS: Large portion of the contrast bolus is in the superior vena cava. However there is no large or central pulmonary embolus. Evaluation of distal branches is limited. Negative for thoracic aortic aneurysm or dissection. Limited evaluation of upper abdomen unremarkable. Osseous structures are grossly intact. No pneumothorax. Airways are patent. The lungs are clear IMPRESSION: No acute intrathoracic process TECHNICAL DOCUMENTATION: Quality ID # [id number]: Final reports with documentation of one or more dose reduction techniques (e.g., Automated exposure control, adjustment of the mA and/or kV according to patient size, use of iterative reconstruction technique) copyright 2010 [employer]- All Rights Reserved
[2019-06-19] MEDS ORDERED: CEPHALEXIN 500 MG CAPSULE PO ONE (01:07)
[2019-06-19 06:01] VITALS: BP 120/59
--- NOTE | 2019-06-19 07:47 | EKG REPORT ---
SEVERITY:- OTHERWISE NORMAL ECG - SINUS TACHYCARDIA : Confirmed by: Samson Ramos MD 19-Jun-2019 07:45:45
== END 2019-06-19 05:40 | disposition home or self-care (01) ==
LOC: ER 19:56
DX: O23.12 Infections of bladder in pregnancy, second trimester (principal); O20.9 Hemorrhage in early pregnancy, unspecified; O23.592 Infection of other part of genital tract in pregnancy, second trimester; O26.852 Spotting complicating pregnancy, second trimester; E86.0 Dehydration; M54.5 Low back pain; R30.0 Dysuria; Z3A.14 14 weeks gestation of pregnancy; Z88.6 Allergy status to analgesic agent
CPT/HCPCS: 93005; 99284; 96360; 96361; 86900; 86901; 36415; 87086; 87070; 87205; 87210; 84443; 85025; 85610; 85730; 80053; 81001; 85379; 87491; 87591; 76815; 71275; 93010; J7030 ×2; 87088

== ENCOUNTER 2019-11-22 15:21 | Outpatient (CLI) | payer MEDICAID ==
[2019-11-22] MEDS ORDERED: AZITHROMYCIN 250 MG TABLET PO ONE (15:59)
[2019-11-22] MEDS ORDERED: AZITHROMYCIN 1 GM SUSP PACKET ONE (16:03)
[2019-11-22 16:32] LABS: APPEARANCE,URINE CLOUDY; BILIRUBIN,URINE NEGATIVE (NEGATIVE); COLOR,URINE YELLOW; GLUCOSE, URINE 50 mg/dL (NEGATIVE); KETONES,URINE NEGATIVE (NEGATIVE); LEUKOCYTE ESTERASE,URINE MODERATE (NEGATIVE); NITRITE,URINE NEGATIVE (NEGATIVE); PROTEIN,URINE 30 mg/dL (NEGATIVE)
[2019-11-22 16:46] LABS: URINE AMPHETAMINES SCREEN NEGATIVE; URINE BARBITURATES SCREEN NEGATIVE; URINE BENZODIAZEPINES SCREEN NEGATIVE; URINE COCAINE SCREEN NEGATIVE; URINE MARIJUANA (THC) SCREEN NEGATIVE; URINE METHADONE SCREEN NEGATIVE; URINE PHENCYCLIDINE SCREEN NEGATIVE
--- NOTE | 2019-11-22 16:57 | Non Stress Test Report ---
Non Stress Test Datetime Report Generated by CPN: 11/22/2019 16:57 DEMOGRAPHIC Test Number: 1 EGA NST: 36.3 INDICATION Indication for Study (NST) Other: labor check VITAL SIGNS Temperature - NST: 98.4 Pulse - NST: 99 RESP - NST: 20 NBPSYS NST: 130 NBPDIA NST: 84 MONITORING Monitor Explained: Monitor Explained; Test Explained; Patient Verbalized Understanding; Other Time on Monitor: 11/22/2019 15:52 Time off Monitor: 11/22/2019 16:55 NST Duration: 63 NST INTERVENTIONS NST Interventions: PO Hydration; Reposition Patient Physician Notified NST: Dr Ulloa BABY A: [id number] BABY A Movement : Present Contraction Frequency : occasional FHR Baseline : 145 Accelerations : 15X15 Decelerations : None Variability : Moderate 6-25bpm NST Review: Meets Criteria for Reactive NST NST Review and Verified By : Tonie Palafox RN NST Results: Reactive NST REPORT Report Trigger: Send Report
== END 2019-11-22 17:14 | disposition home or self-care (01) ==
LOC: LC 15:21
PROVIDERS: ATTEND Student in an Organized Health Care Education/Training Program
DX: O47.03 False labor before 37 completed weeks of gestation, third trimester (principal); Z3A.36 36 weeks gestation of pregnancy
CPT/HCPCS: 59025; 81005; 80307; 84112; Q0144

== ENCOUNTER 2019-12-19 21:30 | Outpatient (CLI) | payer MEDICAID ==
[2019-12-19 22:22] LABS: APPEARANCE,URINE CLOUDY; BILIRUBIN,URINE NEGATIVE (NEGATIVE); COLOR,URINE YELLOW; GLUCOSE, URINE 50 mg/dL (NEGATIVE); KETONES,URINE TRACE mg/dL (NEGATIVE); LEUKOCYTE ESTERASE,URINE LARGE (NEGATIVE); NITRITE,URINE NEGATIVE (NEGATIVE); PROTEIN,URINE 30 mg/dL (NEGATIVE); URINE SPECIFIC GRAVITY 1.021
[2019-12-19 23:01] LABS: URINE AMPHETAMINES SCREEN NEGATIVE; URINE BARBITURATES SCREEN NEGATIVE; URINE BENZODIAZEPINES SCREEN NEGATIVE; URINE COCAINE SCREEN NEGATIVE; URINE MARIJUANA (THC) SCREEN NEGATIVE; URINE METHADONE SCREEN NEGATIVE; URINE PHENCYCLIDINE SCREEN NEGATIVE
[2019-12-19] MEDS ORDERED: HYDROXYZINE PAMOATE 50 MG CAPSULE PO ONE (23:08)
[2019-12-19] MEDS ORDERED: HYDROXYZINE PAMOATE 50 MG CAPSULE ONE (23:11)
--- NOTE | 2019-12-19 23:23 | Non Stress Test Report ---
Non Stress Test Datetime Report Generated by CPN: 12/19/2019 23:23 DEMOGRAPHIC EGA NST: 40.2 INDICATION Indication for Study (NST) Other: IUP @ 40.2, not in labor VITAL SIGNS Temperature - NST: 98.2 Pulse - NST: 102 RESP - NST: 18 NBPSYS NST: 124 NBPDIA NST: 66 MONITORING Monitor Explained: Monitor Explained; Test Explained; Patient Verbalized Understanding Time on Monitor: 12/19/2019 21:52 Time off Monitor: 12/19/2019 22:34 NST Duration: 42 NST INTERVENTIONS NST Interventions: PO Hydration; Reposition Patient Physician Notified NST: Dr. De Luna BABY A: [id number] BABY A Movement : Present Contraction Frequency : irregular FHR Baseline : 135 Accelerations : 15X15 Decelerations : None Variability : Moderate 6-25bpm NST Review: Meets Criteria for Reactive NST NST Review and Verified By : Terrie Gregory RN NST Results: Reactive NST REPORT Report Trigger: Send Report
== END 2019-12-19 23:21 | disposition home or self-care (01) ==
LOC: LC 21:30
PROVIDERS: ATTEND Obstetrics & Gynecology Gynecology
DX: O47.1 False labor at or after 37 completed weeks of gestation (principal); Z3A.40 40 weeks gestation of pregnancy
CPT/HCPCS: 59025; 81005; 80307; J3490

== ENCOUNTER 2019-12-21 03:48 | Inpatient (IN) | payer MEDICAID ==
[2019-12-21 04:26] LABS: APPEARANCE,URINE CLOUDY; BILIRUBIN,URINE NEGATIVE (NEGATIVE); COLOR,URINE YELLOW; GLUCOSE, URINE NEGATIVE (NEGATIVE); KETONES,URINE NEGATIVE (NEGATIVE); LEUKOCYTE ESTERASE,URINE MODERATE (NEGATIVE); NITRITE,URINE NEGATIVE (NEGATIVE); PROTEIN,URINE NEGATIVE (NEGATIVE); URINE SPECIFIC GRAVITY 1.014
[2019-12-21 04:44] LABS: URINE AMPHETAMINES SCREEN NEGATIVE; URINE BARBITURATES SCREEN NEGATIVE; URINE BENZODIAZEPINES SCREEN NEGATIVE; URINE COCAINE SCREEN NEGATIVE; URINE MARIJUANA (THC) SCREEN NEGATIVE; URINE METHADONE SCREEN NEGATIVE; URINE PHENCYCLIDINE SCREEN NEGATIVE
[2019-12-21] MEDS ORDERED: OXYTOCIN/0.9 % SODIUM CHLORIDE 30 UNIT/500 ML RTUINJ ONE (06:36)
[2019-12-21] MEDS ORDERED: MISOPROSTOL 0.2 MG TABLET ONE (06:36)
[2019-12-21] MEDS ORDERED: LIDOCAINE 1% INJ-PF (10 MG/ML) 30 ML SDV ONE ×2 (06:36→13:57)
[2019-12-21] MEDS ORDERED: PENICILLIN G-K 5 MILLION UNIT VIAL ONE (06:37)
[2019-12-21] MEDS ORDERED: RINGERS SOLUTION,LACTATED 1,000 ML IV PRN (07:11)
[2019-12-21] MEDS ORDERED: OXYTOCIN/0.9 % SODIUM CHLORIDE 30 UNIT/500 ML RTUINJ IV PRN ×2 (07:18→22:08)
[2019-12-21] MEDS ORDERED: RINGERS SOLUTION,LACTATED 1,000 ML IV ONE (07:30)
[2019-12-21 07:39] LABS: ABSOLUTE LYMPHOCYTES (AUTO) 1.8 10^3/uL (0.5-4.7); ABSOLUTE MONOCYTES (AUTO) 0.8 10^3/uL (0.1-1.4); ABSOLUTE NEUT (AUTO) 10.1 10^3/uL (1.7-8.2); BASOPHILS % (AUTO) 0.4 % (0-2); EOSINOPHILS % (AUTO) 0.2 % (0-6); HEMATOCRIT 34.6 % (36.0-47.0); HEMOGLOBIN 11.8 g/dL (12.0-15.5); LYMPHOCYTES % (AUTO) 13.9 % (13-45); MEAN CORPUSCULAR VOLUME 79 fl (80-97); MONOCYTES % (AUTO) 6.4 % (3-13); PLATELET COUNT 227 10^3/uL (150-450); RED BLOOD COUNT 4.37 10^6/uL (3.72-5.28); RED CELL DISTRIBUTION WIDTH 14.1 % (11.5-14.0); SEGMENTED NEUTROPHILS % (AUTO) 79.1 % (42-78); TOTAL CELLS COUNTED % (AUTO) 100 %; WHITE BLOOD COUNT 12.7 10^3/uL (4.0-10.5)
--- NOTE | 2019-12-21 07:45 | Admission Physical ---
Datetime Report Generated by CPN: 12/21/2019 07:45 CURRENT ADMISSION Chief Complaint: Uterine Contractions; Suspected Ruptured Membranes Indication for Induction: Not Applicable Admit Impression : Term, Intrauterine ; No Active Labor; Ruptured Membranes Admit Plan: Admit to Unit; Initiate Labor Augmentation Protocol ALLERGIES Medication Allergies: Yes Medication Allergies: oxycodone (12/21/2019) Latex: No Latex Allergies OBSTETRICAL HISTORY EDC: 12/17/2019 00:00 : 1 Para: 0 Term: 0 : 0 SAB: 0 IAB: 0 Ectopic: 0 Livin (Annotations: Data stored by N on behalf of user) Cesareans: 0 VBACs: 0 Multiple Births: 0 Gestational Diabetes: No Rh Sensitization: No Incompetent Cervix: No JENNIFER: No Infertility: No ART Treatment: No Uterine Anomaly: No IUGR: No Hx Previous C/S: No Macrosomia: No Hx Loss/Stillborn: No PIH: No Hx : No Placenta Previa/Abruption: No Depression/PP Depression: No PTL/PROM: No Post Hemorrhage: No Current Procedures: Ultrasound Obstetrical History Comments: G1: current SEE RECORDS Alcohol: No Marijuana : Yes Marijuana Frequency: Occasional Last Used: 06/05/2019 00:00 Previous Treatment: None Cocaine: No Other Illicit Drugs: No Cigarettes: Never Smoker. 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 Heart Disease: No Hosp/Surgery: Yes Autoimmune Disorder: No Anesthetic Complications: Yes Kidney Disease: Yes Abnormal Pap Smear: No Neuro/Epilepsy: No Psychiatric Disorders: No Other Medical Diseases: No Hepatitis/Liver Disease: No Significant Family History: No Varicosities/Phlebitis: No Trauma/Violence : No Thyroid Dysfunction: No Medical History Comments: frequent UTIs; cyst on left side (could not go under anesthesia d/t "neck being too narrow") INFECTIOUS HISTORY Gonorrhea: No Genital Herpes: No Chlamydia: Yes Tuberculosis: No Syphilis: No Hepatitis: No HIV/AIDS Exposure: No Rash or Viral Illness: No HPV: Yes Infectious History Comments: ASCUS HPV+; positive chlamydia 11/19/2019 PHYSICAL EXAM General: Normal HEENT: Normal Neurologic: Normal Thyroid: Deferred Heart: Normal Lungs: Normal Breast: Deferred Back: Normal Abdomen: Normal Genitourinary Exam: Normal Extremities: Normal DTRs: Normal Pelvic Type: Adequate Vital Signs: Reviewed VAGINAL EXAM Dilatation: 2 Effacement: 50 Station: -2 Contraction Comments: irreg MEMBRANES Membranes: Ruptured Amniotic Fluid Color: Clear FETUS A EGA: 40.4 Monitoring: External US FHR- Baseline: 135 Variability: Moderate 6-25bpm Accelerations: 15X15 Decelerations: None FHR Category: Category I Presentation: Vertex Admit Comment: 24yo at 40+4ega presents for eval of poss SROM. On initial eval no e/o SROM but then during labor check patient noted gush of fluid and repeat Actimprom done with + SROM. Admit with PCN for GBS prophy. She is having a boy and desires circ - r/b/a reviewed. Chlam at 36wks - tx and good OLGA on 12/09 - will repeat today. Admit to labor and delivery. Anticipate . PLANS FOR LABOR AND DELIVERY Labor and Delivery: Plan Pain Management: Epidural Feeding Preference: Both Benefit of Breast Feed Discussed: Yes Circumcision: Yes INFORMED CONSENT Informed Consent Obtained: Vaginal Delivery; Risks, Benefits and Alternatives Discussed Signature: with User ID: [email or web address]
[2019-12-21] MEDS ORDERED: PENICILLIN G POTASSIUM 5,000,000 UNIT in DEXTROSE 5%-WATER 100 ML IV ONE (08:00)
--- NOTE | 2019-12-21 08:07 | Warning Signs in Babies ---
VOD Warning Signs Datetime Report Generated by N: 12/21/2019 08:07 VOD#608 -Warning Signs in Babies: Viewed with Parent(s)/Family (12/21/2019 08:07:Blair Mcfarlane RN)
[2019-12-21] MEDS ORDERED: PROMETHAZINE HCL INJ 25 MG/1 ML VIAL IV ONE (09:57)
[2019-12-21] MEDS ORDERED: NALBUPHINE HCL INJ 10 MG/1 ML AMPULE INJ ONE (09:57)
[2019-12-21] MEDS ORDERED: NALBUPHINE HCL INJ 10 MG/1 ML AMPULE ONE (10:05)
[2019-12-21] MEDS ORDERED: PROMETHAZINE HCL INJ 25 MG/1 ML VIAL ONE (10:05)
[2019-12-21 10:08] LABS: CHLAM PCR NOT DETECTED (NOT DETECT)
[2019-12-21] MEDS: PENICILLIN G POTASSIUM 2,500,000 UNIT in DEXTROSE 5%-WATER 50 ML IV SCH ×3 (11:00→19:02)
[2019-12-21] MEDS ORDERED: FENTANYL/BUPIVACAINE/NS/PF 300 MCG/150 ML RTUINJ EPI ONE (12:58)
[2019-12-21] MEDS ORDERED: ROPIVACAINE HCL 0.2% INJ/PF (2 MG/ML) 20 ML SDV ONE (12:58)
[2019-12-21] MEDS ORDERED: EPHEDRINE SULFATE INJ 50 MG/1 ML AMPULE ONE (12:58)
[2019-12-21] MEDS ORDERED: OXYTOCIN 10 UNIT/ML VIAL ONE (13:57)
[2019-12-21] MEDS ORDERED: GENTAMICIN SULFATE INJ 80 MG/2 ML VIAL IV PRN (19:46)
[2019-12-21] MEDS ORDERED: GENTAMICIN SULFATE INJ 80 MG/2 ML VIAL ONE (20:11)
[2019-12-21] MEDS ORDERED: ACETAMINOPHEN 325 MG TABLET ONE (20:11)
[2019-12-21] MEDS ORDERED: ACETAMINOPHEN 325 MG TABLET PO ONE (20:30)
[2019-12-21] MEDS ORDERED: GENTAMICIN SULFATE 100 MG in DEXTROSE 5%-WATER 100 ML IV ONE (21:00)
[2019-12-21] MEDS ORDERED: AMPICILLIN SOD INJ 2 GM VIAL ONE (21:22)
[2019-12-21] MEDS ORDERED: CLINDAMYCIN 900 MG/D5W RTU 900 MG/50 ML RTUPB IV ONE ×2 (21:22→21:27)
[2019-12-21] MEDS ORDERED: AMPICILLIN SOD INJ 2 GM VIAL IV PRN (21:27)
[2019-12-21] MEDS ORDERED: GLYCERIN/WITCH HAZEL LEAF 1 EACH MED..WIPE TP PRN (22:08)
[2019-12-21] MEDS ORDERED: PROMETHAZINE HCL 25 MG TABLET PO PRN (22:08)
[2019-12-21] MEDS ORDERED: PROMETHAZINE HCL INJ 25 MG/1 ML VIAL IV PRN (22:08)
[2019-12-21] MEDS ORDERED: ACETAMINOPHEN 325 MG TABLET PO PRN (22:08)
[2019-12-21] MEDS ORDERED: DIBUCAINE 1% OINTMENT 28 GM TP PRN (22:08)
[2019-12-21] MEDS ORDERED: ZOLPIDEM TARTRATE 5 MG TABLET PO PRN (22:08)
[2019-12-21] MEDS ORDERED: ACETAMINOPHEN WITH CODEINE #3 TABLET PO PRN (22:08)
[2019-12-21] MEDS ORDERED: PSEUDOEPHEDRINE HCL 30 MG TABLET PO PRN (22:08)
[2019-12-21] MEDS ORDERED: MEASLES,MUMPS&RUBELLA VACC/PF 0.5 ML VIAL SUBCUT PRN (22:08)
[2019-12-21] MEDS ORDERED: PROMETHAZINE HCL 25 MG SUPP.RECT PR PRN (22:08)
[2019-12-21] MEDS ORDERED: NA PHOS,M-B/NA PHOS,DI-BA (ADULT) 133 ML ENEMA PR PRN (22:08)
[2019-12-21] MEDS ORDERED: BENZOCAINE/MENTHOL AEROSOL SPRAY 56 ML TOP PRN (22:08)
[2019-12-21] MEDS ORDERED: DIPH/PERTUSS(ACELL)/TETANUS VAC/PF 0.5 ML SYR (>=10YO) IM PRN (22:08)
[2019-12-21] MEDS ORDERED: ACETAMINOPHEN 650 MG SUPP.RECT PR PRN (22:08)
[2019-12-21] MEDS ORDERED: DIPHENHYDRAMINE HCL 25 MG CAPSULE PO PRN (22:08)
[2019-12-21] MEDS ORDERED: MAGNESIUM HYDROXIDE SUSP 30 ML UDCUP PO PRN (22:08)
[2019-12-21] MEDS ORDERED: ACETAMINOPHEN WITH CODEINE #3 TABLET ONE (22:25)
[2019-12-21] MEDS ORDERED: IBUPROFEN 800 MG TABLET ONE (22:25)
[2019-12-21] MEDS ORDERED: AMPICILLIN SODIUM 2 GM in NORMAL SALINE 100 ML IV ONE (22:30)
[2019-12-21] MEDS: FAMOTIDINE 20 MG TABLET PO SCH (23:27)
--- NOTE | 2019-12-21 23:43 | Delivery Summary ---
Del Sum A-C Datetime Report Generated by CPN: 12/21/2019 23:42 DELIVERY PERSONNEL DELIVERY PERSONNEL: [id number] Delivery Doctor:: Mariah Pinon MD Labor and Delivery Nurse:: Lisa John RNcae engineer Nurse:: [place] Valenzuela RN Nursery Nurse:: Barbara De Luna RN [employer] Supervisor/HELPER COORDINATOR: [facility] MATERNAL INFORMATION Delivery Anesthesia: Epidural Medications After Delivery: Pitocin 30 Units in 500ml NS/D5W Estimated Blood Loss (ml): 100 Delivery QBL: 100 Maternal Complications: Chorioamnionitis; Maternal Fever LABOR SUMMARY EDC: 12/17/2019 00:00 No. Babies in Womb: 1 Attempted: No Labor Anesthesia: Epidural LABOR INFORMATION Reason for Induction: Not Applicable Onset of Labor: 12/21/2019 14:15 Complete Dilatation: 12/21/2019 20:25 Oxytocin: Augmentation Group B Beta Strep: positive Antibiotics # of Doses: 4 Antibiotics Time of Last Dose: 12/21/2019 19:02 Name of Antibiotic Given: Penicillin Steroids Given: None Reason Steroids Not Administered: Not Applicable MEMBRANES Membranes Rupture Method: Spontaneous Rupture of Membranes: 12/21/2019 05:11 Length of Rupture (hr): 16.75 Amniotic Fluid Color: Clear Amniotic Fluid Amount: Moderate Amniotic Fluid Odor: Normal STAGES OF LABOR Stage 1 hr: 6 Stage 1 min: 10 Stage 2 hr: 1 Stage 2 min: 31 Stage 3 hr: 0 Stage 3 min: 3 Total Time in Labor hr: 7 Total Time in Labor min: 44 VAGINAL DELIVERY Episiotomy: None Laceration #1: None Laceration Repair: Not Applicable CSECTION DELIVERY Primary Indication: N/A Secondary Indication: N/A CSection Incidence: N/A Labor: N/A Elective: N/A CSection Incision: N/A BABY A INFORMATION Infant Delivery Date/Time: 12/21/2019 21:56 Method of Delivery: Vaginal Nurse Controlled Delivery: No Born in Route : No : N/A Forceps: N/A Vacuum Extraction: N/A Shoulder Dystocia : No PRESENTATION/POSITION BABY A Presentation: Cephalic Cephalic Presentation: Vertex Vertex Position: Left Occipital Anterior Breech Presentation: N/A PLACENTA INFORMATION BABY A Placenta Delivery Time : 12/21/2019 21:59 Placenta Method of Delivery: Spontaneous Placenta Status: Delivered SCORES BABY A Heart Rate 1 min: >100 bpm Resp Effort 1 min: Slow, Irregular Reflex Irritability 1 min: Cough or Sneeze or Pulls Away Muscle Tone 1 min: Some Flexion of Extremities Color 1 min: Body Crawford, Extremities Blue Resuscitation Effort 1 min: Tactile Stimulation SCORE 1 MIN: 7 Heart Rate 5 min: >100 bpm Resp Effort 5 min: Good Cry Reflex Irritability 5 min: Cough or Sneeze or Pulls Away Muscle Tone 5 min: Active Motion Color 5 min: Body Crawford, Extremities Blue SCORE 5 MIN: 9 INFANT INFORMATION BABY A Gestational Age at Delivery: 40.4 Gestational Status: Full Term- 39- 40.6 Weeks Outcome : Liveborn Condition : Stable Sex: Male IDENTIFICATION BABY A Infant Verification Date/Time: 12/21/2019 22:08 ID Band Number: [id number] Mother's Name Verified: Yes Infant RN Verifying Infant: Homero Arevalo, RN Additional Verifying Personnel: Sunshine Valenzuela RN WEIGHT/LENGTH BABY A Birthweight (gm): 3299 Infant Weight (lb): 7 Weight (oz): 4 Length (in): 19.50 Infant Length (cm): 49.53 CORD INFORMATION BABY A No. Cord Vessels: 3 Nuchal Cord : N/A Cord Blood Taken: Yes-For Storage (Mom's Blood type +) Infant Suction: Mouth; Nose ASSESSMENT BABY A Complications: Other Complications- Other: terminal meconium Physical Findings at Delivery: Molding of the Head Physical Findings- Other: see initial nursery assessment Respirations: Appears Normal Skin to Skin: Yes Skin to Skin Time (min): 60 Patrol Mother/ALS Called : No Care By: RN De Luna Transferred To: Remains with Mother BABY B INFORMATION : N/A SIGNATURES Signature: with User ID: [email or web address]
--- NOTE | 2019-12-21 23:43 | Birth Certificate Data ---
Cert Data Datetime Report Generated by N: 12/21/2019 23:42 CERTIFICATE DATA 47a. Care: Yes (11/22/2019 15:47:Archana Miller RN) 47b. Date of First Visit: 04/16/2019 00:00 (11/22/2019 15:47:Lisa John RN) 47c. Date of Last Visit: 12/20/2019 00:00 (11/22/2019 15:47:Lisa John RN) 47d. Number of Visits: 14 (11/22/2019 15:47:Inez Palafox RN) 48a. Number of Prev Live Births: 0 (11/22/2019 15:47:Archana Miller RN) 48b. Now Livin (Annotations: Data stored by [facility] on behalf of user) (11/22/2019 15:47:Inna Hogan RN) 48c. Live Births Now : 0 (11/22/2019 15:47:QS system process) 48e. Losses: 0 (11/22/2019 15:47:Archana Sommerfkai RN) RISK FACTORS IN THIS 49a. Diabetes: No (11/22/2019 15:47:Lisa John RN) 49b. Hypertension: No (11/22/2019 15:47:Lisa John RN) 49c. Previous Births: 0 (11/22/2019 15:47:Inna Hogan RN) 49d. Stillborns: No (11/22/2019 15:47:Lisa John RN) 49d. IUGR: No (11/22/2019 15:47:Lisa John RN) 49e. Infertility Treatment: No (11/22/2019 15:47:Lisa John RN) 49f. Previous Cesareans: 0 (11/22/2019 15:47:Archana Miller RN) Mother's Height 50b. Height Inches: 65 (11/22/2019 15:36:QS system process) Mother's Weight 51a. Pre- Weight (lbs): 183 (11/22/2019 15:47:Ienz Palafox RN) 51b. Weight at Delivery (lbs): 213 (12/21/2019 04:48:QS system process) 52. Dt Last Normal Menses Began: 03/12/2019 00:00 (11/22/2019 15:47:Archana Miller RN) Infections Present/Treated 53a. Gonorrhea: No (11/22/2019 15:47:Lisa John RN) Results this Hospital Visit : Negative (11/22/2019 15:47:Lisa John RN) 53b. Syphilis: No (11/22/2019 15:47:Lisa John RN) 53c. Chlamydia: Yes (11/22/2019 15:47:Lisa John RN) Results this Hospital Visit: Negative (11/22/2019 15:47:Lisa John RN) 53d. Hepatitis B: No (11/22/2019 15:47:Lisa John RN) Results this Hospital Visit: Negative (11/22/2019 15:47:Archana Miller RN) 53e. Hepatitis C: Negative (11/22/2019 15:47:Archana Miller RN) 53h. Mother Tested for HBsAG: Yes (11/22/2019 15:47:Archana Miller RN) 53i. Date Tested: 06/04/2019 00:00 (11/22/2019 15:47:Archana Miller RN) 53j. Test Result: Negative (11/22/2019 15:47:Archana Miller RN) Obstetric Procedures 54a, b, c. Obstetric Procedures: Ultrasound (11/22/2019 15:47:Lisa Ring, RN) Cigarette Smoking Cigarette Smoking: Never Smoker. [id number] (11/22/2019 15:47:Lisa Ring, RN) Onset of Labor 56a. PROM >12 Hrs: 16.75 (11/22/2019 15:47:QS system process) 56b. Precipitous Labor <3 Hrs: 7 (11/22/2019 15:47:QS system process) 56c. Prolonged Labor > 20 Hrs: 7 (11/22/2019 15:47:QS system process) 57a. Induction of Labor: Augmentation (11/22/2019 15:47:Blair Mcfarlane RN) 57c. Non-Vertex Presentation A: Vertex (11/22/2019 15:47:Lisa John RN) 57d. Steroids - Lung Mat: None (11/22/2019 15:47:Lisa John RN) 57d. Steroids - Lung Mat: Not Applicable (11/22/2019 15:47:Lisa John RN) 57e. Antibiotics During Labor: 12/21/2019 19:02 (11/22/2019 15:47:Lisa John RN) 57f. Mat Chorio or Temp >100.4: 101.8 (11/22/2019 15:47:Lisa John RN) 57g. Moderate/Heavy Meconium: Clear (11/22/2019 15:47:Lisa John RN) 57h. Intolerance of Labor: N/A (11/22/2019 15:47:Lisa John RN) : N/A (11/22/2019 15:47:Lisa John RN) 57i. Epidural/Spinal Anesthesia: Epidural (11/22/2019 15:47:Lisa Ring, RN) Method of Delivery 58a. Forceps - Unsuccessful A: N/A (11/22/2019 15:47:Lisa Ring, RN) 58b. Vacuum - Unsuccessful A: N/A (11/22/2019 15:47:Lisa Ring, RN) 58c. Presentation at 58c. Presentation at - A : Vertex (11/22/2019 15:47:Lisa Ring, RN) 58c. Presentation at - A : N/A (11/22/2019 15:47:Lisa Ring, RN) 58c. Presentation at - A : Cephalic (12/21/2019 21:37:Lisa Ring, RN) Final Route and Method of Del 58d. Baby A Route/Delivery: Vaginal (12/21/2019 21:56:Lisa John RN) 58e. Trial of Labor Attempted: No (11/22/2019 15:47:Blair Mcfarlane RN) 58e. Trial of Labor Attempted A: N/A (11/22/2019 15:47:Blair Mcfarlane RN) 58e. Trial of Labor Attempted B: N/A (11/22/2019 15:47:Blair Mcfarlane RN) Maternal Morbidity 59b. 3rd or 4th Degree Lacs: None (11/22/2019 15:47:Mariah Pinon MD ([facility])) Birthweight Baby A: 3299 (11/22/2019 15:47:Lisa John RN) 60a. Pounds : 7 (11/22/2019 15:47:QS system process) 60b. Ounces: 4 (11/22/2019 15:47:QS system process) 61. GA at Delivery Baby A: 40.4 (11/22/2019 15:47:Lisa Ring, RN) : Full Term- 39- 40.6 Weeks (11/22/2019 15:47:QS system process) 62a. 5 Minute Baby A: 9 (11/22/2019 15:47:QS system process)
[2019-12-22] MEDS ORDERED: GENTAMICIN SULFATE INJ 80 MG/2 ML VIAL IV PRN
[2019-12-22] MEDS ORDERED: FLUCONAZOLE 100 MG TABLET PO ONE (02:45)
[2019-12-22] MEDS ORDERED: AMPICILLIN SODIUM/SULBACTAM NA 3 GM in NORMAL SALINE 100 ML IV SCH (02:45)
[2019-12-22] MEDS ORDERED: FLUCONAZOLE 100 MG TABLET ONE (02:49)
[2019-12-22] MEDS ORDERED: AMPICILLIN SOD/SULBACTAM 3 GM VIAL ONE (04:26)
[2019-12-22] MEDS ORDERED: GENTAMICIN SULFATE 80 MG in DEXTROSE 5%-WATER 100 ML IV SCH (06:00)
[2019-12-22 07:56] LABS: HEMATOCRIT 27.5 % (36.0-47.0); MEAN CORPUSCULAR HEMOGLOBIN 27.1 pg (27.0-33.4); MEAN CORPUSCULAR HGB CONC 34.2 g/dL (32.0-36.0); MEAN CORPUSCULAR VOLUME 79 fl (80-97); PLATELET COUNT 182 10^3/uL (150-450); RED BLOOD COUNT 3.47 10^6/uL (3.72-5.28); WHITE BLOOD COUNT 19.7 10^3/uL (4.0-10.5)
[2019-12-22 07:59] LABS: HEMOGLOBIN 9.4 g/dL (12.0-15.5)
[2019-12-22] MEDS: IBUPROFEN 800 MG TABLET PO SCH ×3 (08:24→22:04)
[2019-12-22] MEDS: PRENATAL VITAMIN W DHA CAPSULE PO SCH (09:11)
[2019-12-22] MEDS: FERROUS SULFATE 325 MG TABLET PO SCH ×2 (09:11→17:42)
[2019-12-22] MEDS: FAMOTIDINE 20 MG TABLET PO SCH ×2 (09:11→22:03)
[2019-12-22] MEDS: DOCUSATE SODIUM 100 MG CAPSULE PO SCH ×2 (09:11→17:42)
[2019-12-22] MEDS: SENNOSIDES/DOCUSATE 8.6-50 MG 1 EACH TABLET PO SCH (09:11)
--- NOTE | 2019-12-22 10:17 | PDOC PROGRESS REPORT ---
Subjective-OB Progress Note for:: 12/22/19 Subjective: reports bleeding slowing, pain controlled with current meds. denies needs Physical Exam (OB) Vital Signs: Temp Pulse Resp BP Pulse Ox 98.4 F 114 H 18 106/70 99 12/22/19 07:33 12/22/19 07:33 12/22/19 07:33 12/22/19 07:33 12/22/19 07:33 Intake & Output 12/21/19 12/22/19 12/23/19 06:59 06:59 06:59 Intake Total 150 Output Total 600 Balance -450 Weight 97 kg - Maternal Morbidity 59. Maternal Morbidity (serious complications experinced by the mother associated with labor and delivery: None of the above - Abdomen Description: Firm Hernia Present: No Fundal Description: Firm Fundal Height: u/u - u/2 - Abdominal Distension: No distension Tenderness: Nontender - Extremities Lower extremities: Rhoda's sign - neg Calf: Normal, Nontender Objective-Diagnostic Laboratory: 12/22/19 07:20 12/22/19 07:20 WBC 19.7 H RBC 3.47 L Hgb 9.4 L D Hct 27.5 L MCV 79 L MCH 27.1 MCHC 34.2 RDW 14.0 Plt Count 182 Assessment and Plan(PN) - Time Spent with Patient Time with patient: Less than 15 minutes - Disposition Anticipated Discharge Disposition: Home, Self Care Anticipated Discharge Timeframe: within 24 hours
[2019-12-22] MEDS: ACETAMINOPHEN WITH CODEINE #3 TABLET PO PRN (10:19)
[2019-12-22] MEDS: AMPICILLIN SODIUM/SULBACTAM NA 3 GM in NORMAL SALINE 100 ML IV SCH ×2 (15:26→22:06)
[2019-12-23] MEDS: IBUPROFEN 800 MG TABLET PO SCH ×2 (05:46→13:21)
[2019-12-23] MEDS: AMPICILLIN SODIUM/SULBACTAM NA 3 GM in NORMAL SALINE 100 ML IV SCH ×2 (05:47→13:21)
[2019-12-23 07:02] LABS: ABSOLUTE EOSINOPHILS # (AUTO) 0.1 10^3/uL (0.0-0.6); ABSOLUTE LYMPHOCYTES (AUTO) 2.6 10^3/uL (0.5-4.7); ABSOLUTE NEUT (AUTO) 11.5 10^3/uL (1.7-8.2); BASOPHILS % (AUTO) 0.2 % (0-2); EOSINOPHILS % (AUTO) 0.8 % (0-6); HEMATOCRIT 26.5 % (36.0-47.0); HEMOGLOBIN 8.8 g/dL (12.0-15.5); LYMPHOCYTES % (AUTO) 16.9 % (13-45); MEAN CORPUSCULAR HEMOGLOBIN 26.8 pg (27.0-33.4); MEAN CORPUSCULAR HGB CONC 33.4 g/dL (32.0-36.0); MEAN CORPUSCULAR VOLUME 80 fl (80-97); MONOCYTES % (AUTO) 6.3 % (3-13); PLATELET COUNT 179 10^3/uL (150-450); RED BLOOD COUNT 3.29 10^6/uL (3.72-5.28); RED CELL DISTRIBUTION WIDTH 13.9 % (11.5-14.0); SEGMENTED NEUTROPHILS % (AUTO) 75.8 % (42-78); TOTAL CELLS COUNTED % (AUTO) 100 %; WHITE BLOOD COUNT 15.2 10^3/uL (4.0-10.5)
[2019-12-23] MEDS: SENNOSIDES/DOCUSATE 8.6-50 MG 1 EACH TABLET PO SCH (09:13)
[2019-12-23] MEDS: FERROUS SULFATE 325 MG TABLET PO SCH ×2 (09:13→17:18)
[2019-12-23] MEDS: PRENATAL VITAMIN W DHA CAPSULE PO SCH (09:13)
[2019-12-23] MEDS: DOCUSATE SODIUM 100 MG CAPSULE PO SCH ×2 (09:13→17:18)
[2019-12-23] MEDS: FAMOTIDINE 20 MG TABLET PO SCH (09:13)
[2019-12-23] MEDS: ACETAMINOPHEN WITH CODEINE #3 TABLET PO PRN (10:31)
--- NOTE | 2019-12-23 15:16 | PDOC DISCHARGE SUMMARY ---
Impression - Admit/DC Date/PCP Admission Date/Primary Care Provider: 12/21/19 06:33 RADHA AUSTIN MD Discharge Date: 12/23/19 - PP Day #2, doing well, Pt had been on Unasym for chorio. Afebrile x 24 hours at least. B+, Rubella immune, breast and bottlefeeding. - Discharge Diagnosis (1) (normal spontaneous vaginal delivery) Is this a current diagnosis for this admission?: Yes (2) Chorioamnionitis, delivered, current hospitalization Is this a current diagnosis for this admission?: Yes (3) Normal course Is this a current diagnosis for this admission?: Yes (4) Acute blood loss anemia Is this a current diagnosis for this admission?: Yes (5) Chlamydia infection complicating Is this a current diagnosis for this admission?: Yes (6) Spontaneous rupture of amniotic membranes Is this a current diagnosis for this admission?: Yes - Additional Information Resuscitation Status: Full Code Discharge Diet: As Tolerated, Regular Discharge Activity: Activity As Tolerated, No Lifting Over 10 Pounds, Pelvic Rest Referrals: RADHA AUSTIN MD [Primary Care Provider] - Prescriptions: Ferrous Sulfate [Feosol 325 mg Tablet] 325 mg PO BID #60 tablet Ibuprofen [Motrin 800 mg Tablet] 800 mg PO Q8 #60 tablet Home Medications: Pnv 102/Iron/Folate 1/Dss/Dha [Vitafol Fe+ Docusate Combo Pck] 1 each PO DAILY 11/22/19 Ferrous Sulfate [Feosol 325 mg Tablet] 325 mg PO BID #60 tablet 12/23/19 Ibuprofen [Motrin 800 mg Tablet] 800 mg PO Q8 #60 tablet 12/23/19 HPI Reason(s) for Admission: Onset of Labor, Group B Strep Positive Procedures: Ultrasound Intrapartum Procedure(s): Spontaneous Vaginal Delivery - Hx of +chlamydia, negative lab on admission. Pt did hae Chorioamnionitis, tx'd with IV antibiotics Hospital Course 59. Maternal Morbidity (serious complications experinced by the mother associated with labor and delivery: None of the above Results Laboratory Results: WBC 15.2 10^3/uL (4.0-10.5) H 12/23/19 06:19 RBC 3.29 10^6/uL (3.72-5.28) L 12/23/19 06:19 Hgb 8.8 g/dL (12.0-15.5) L 12/23/19 06:19 Hct 26.5 % (36.0-47.0) L 12/23/19 06:19 MCV 80 fl (80-97) 12/23/19 06:19 MCH 26.8 pg (27.0-33.4) L 12/23/19 06:19 MCHC 33.4 g/dL (32.0-36.0) 12/23/19 06:19 RDW 13.9 % (11.5-14.0) 12/23/19 06:19 Plt Count 179 10^3/uL (150-450) 12/23/19 06:19 Lymph % (Auto) 16.9 % (13-45) 12/23/19 06:19 [place] % (Auto) 6.3 % (3-13) 12/23/19 06:19 Eos % (Auto) 0.8 % (0-6) 12/23/19 06: Baso % (Auto) 0.2 % (0-2) 12/23/19 06:19 Absolute Neuts (auto) 11.5 10^3/uL (1.7-8.2) H 12/23/19 06:19 Absolute Lymphs (auto) 2.6 10^3/uL (0.5-4.7) 12/23/19 06:19 Absolute Monos (auto) 1.0 10^3/uL (0.1-1.4) 12/23/19 06:19 Absolute Eos (auto) 0.1 10^3/uL (0.0-0.6) 12/23/19 06:19 Absolute Basos (auto) 0.0 10^3/uL (0.0-0.2) 12/23/19 06:19 Seg Neutrophils % 75.8 % (42-78) 12/23/19 06:19 Urine Color YELLOW 12/21/19 04:00 Urine Appearance CLOUDY 12/21/19 04:00 Urine pH 6.0 (5.0-9.0) 12/21/19 04:00 Ur Specific Supply 1.014 12/21/19 04:00 Urine Protein NEGATIVE mg/dL (NEGATIVE) 12/21/19 04:00 Urine Glucose (UA) NEGATIVE mg/dL (NEGATIVE) 12/21/19 04:00 Urine Ketones NEGATIVE mg/dL (NEGATIVE) 12/21/19 04:00 Urine Blood SMALL (NEGATIVE) H 12/21/19 04:00 Urine Nitrite NEGATIVE (NEGATIVE) 12/21/19 04:00 Urine Bilirubin NEGATIVE (NEGATIVE) 12/21/19 04:00 Urine Urobilinogen 2.0 mg/dL (<2.0) H 12/21/19 04:00 Ur Leukocyte Esterase MODERATE (NEGATIVE) H 12/21/19 04:00 Urine Ascorbic Acid NEGATIVE (NEGATIVE) 12/21/19 04:00 Membranes Rupture POSITIVE (NEGATIVE) H 12/21/19 05:30 Urine Opiates Screen NEGATIVE 12/21/19 04:00 Urine Methadone Screen NEGATIVE 12/21/19 04:00 Ur Barbiturates Screen NEGATIVE 12/21/19 04:00 Ur Phencyclidine Scrn NEGATIVE 12/21/19 04:00 Ur Amphetamines Screen NEGATIVE 12/21/19 04:00 U Benzodiazepines Scrn NEGATIVE 12/21/19 04:00 Urine Cocaine Screen NEGATIVE 12/21/19 04:00 U Marijuana (THC) Screen NEGATIVE 12/21/19 04:00 RPR NONREACTIVE (NONREACTIVE) 12/21/19 07:02 Chlamydia DNA (PCR) NOT DETECTED (NOT DETECT) 12/21/19 08:29 N.gonorrhoeae DNA (PCR) NOT DETECTED (NOT DETECT) 12/21/19 08:29 Blood Type B POSITIVE 12/21/19 07:02 Antibody Screen NEGATIVE 12/21/19 07:02 Plan Health Concerns: fever precautions reviewed, Iron rich foods Plan of Treatment: d/c home, f/up with [facility] in 4 wks for PP check Time Spent: Less than 30 Minutes
[2019-12-23 15:23] VITALS: BP 119/62
== END 2019-12-23 22:00 | disposition home or self-care (01) | DRG 806 ==
LOC: LC 03:48 → LR 06:33 → 2S 12-22 00:40
PROVIDERS: ADMIT Student in an Organized Health Care Education/Training Program; ATTEND Student in an Organized Health Care Education/Training Program
PROC: 10E0XZZ Delivery of Products of Conception, External Approach (ICD-10-PCS; principal; 2019-12-21)
DX: O99.824 Streptococcus B carrier state complicating childbirth (principal); D62 Acute posthemorrhagic anemia; Z37.0 Single live birth; O98.32 Other infections with a predominantly sexual mode of transmission complicating childbirth; O90.81 Anemia of the puerperium; A56.2 Chlamydial infection of genitourinary tract, unspecified; Z88.6 Allergy status to analgesic agent; Z28.21 Immunization not carried out because of patient refusal; Z3A.40 40 weeks gestation of pregnancy; Z03.818 Encounter for observation for suspected exposure to other biological agents ruled out
CPT/HCPCS: 1967; 36415; 80307; 81005; 84112; 85025; 85027; 86592; 86850; 86900; 86901; 87491; 87591; 94760; J0290; J0295; J1580; J2300; J2540; J2550; J2590; J2795; J3010; J3490; J7050; J7060

== ENCOUNTER 2020-01-12 00:23 | Emergency (ER) | payer MEDICAID ==
[2020-01-12 00:39] VITALS: BP 128/73
[2020-01-12] MEDS ORDERED: ONDANSETRON ODT 4 MG TAB (6 TAB/ER DISP) PO PRN (01:05)
--- NOTE | 2020-01-12 01:08 | ER Document Report ---
ED General - General Chief Complaint: Abdominal Pain Stated Complaint: ABDOMINAL PAIN Time Seen by Provider: 01/12/20 01:01 Primary Care Provider: RADHA AUSTIN MD [Primary Care Provider] - Follow up as needed Mode of Arrival: Medic Information source: Patient Notes: Patient is a 25-year-old -Citizen Of [place] female who comes in today chief complaint of stomachache and vomiting. Symptoms started shortly after eating at a [employer]. No fevers or chills. No diarrhea. Called ambulance. Received Zofran 8 mg IV prior to arrival. Feeling better at this time. Does not want any type of work-up TRAVEL OUTSIDE OF THE [place] IN LAST 30 DAYS: No - Related Data Allergies/Adverse Reactions: oxycodone [From Percocet] Allergy (Verified 12/21/19 04:47) Past Medical History - Social History Smoking Status: Unknown if Ever Smoked Family History: Reviewed & Not Pertinent Renal/ Medical History: Denies: Hx Peritoneal Dialysis Psychiatric Medical History: Denies: Hx Depression - Immunizations Immunizations up to date: Yes Hx Diphtheria, Pertussis, Tetanus Vaccination: Yes Review of Systems - Review of Systems Notes: Constitutional: No fevers. No chills. EENT: No eye redness. No eye pain. No ear pain. No sore throat. Cardiovascular: No chest pain. No palpitations. Respiratory: No cough. No shortness of breath. No respiratory distress. Gastrointestinal: +abdominal pain. +emesis Genitourinary: Atraumatic. No lesions. No pain. No discharge. Musculoskeletal: Atraumatic. No swelling. No deformities. Skin: No rash or lesions. Lymphatic: No swollen lymph nodes. Neurologic: No headache. No syncope. Psychiatric: No suicidal or homicidal ideation. Physical Exam - Vital signs Vitals: Temp Pulse Resp BP Pulse Ox 98.2 F 89 16 128/73 H 100 01/12/20 00:38 01/12/20 00:38 01/12/20 00:38 01/12/20 00:38 01/12/20 00:38 - Notes Notes: General: Well-developed, well-nourished. In no acute distress. Non-toxic appearing. Cardiac: Well-perfused. Regular rate and rhythm. No murmurs, rubs, or gallops. Pulmonary: No respiratory distress. No cyanosis. Bilateral lung fiels are clear to auscultation. Abdominal: Abdomen nontender, nondistended. Bowel sounds present all 4 quadrants. No guarding or rebound. HEENT: Head is atraumatic. Conjunctivae not reddened. No tearing. PERRL. EOMI. Orbits atraumatic. No periorbital swelling or erythema. Oropharynx is without erythema, swelling, or exudates. Neck: Supple. No adenopathy. No meningismus. Dermatologic: Warm with good turgor. No rash. Atraumatic. Chest: Atraumatic. No chest wall tenderness to palpation. Musculoskeletal: Moves all extremities well. No range of motion deficits. no muscular or joint tenderness. No paraspinal muscle tenderness. no midline spinal tenderness or step-off. Genitourinary: Examination deferred Neurologic: No gross neurologic deficits. Psychiatric: Normal mood. Course - Re-evaluation Re-evalutation: 01/12/20 01:05 Patient feeling better after the Zofran that was given in the ambulance. We will discharge her home with Zofran ODT. - Vital Signs Vital signs: Temp Pulse Resp BP Pulse Ox 98.2 F 89 16 128/73 H 100 01/12/20 00:38 01/12/20 00:38 01/12/20 00:38 01/12/20 00:38 01/12/20 00:38 Discharge - Discharge Clinical Impression: Gastritis Qualifiers: Gastritis type: unspecified gastritis Chronicity: acute Gastritis bleeding: without bleeding Qualified Code(s): K29.00 - Acute gastritis without bleeding Condition: Good Disposition: HOME, SELF-CARE Instructions: Gastritis ([facility]) Additional Instructions: Zofran ODT tablet can be placed under your tongue every 4-6 hours as needed for nausea. Tylenol for intestinal cramping or spasms. Referrals: RADHA AUSTIN MD [Primary Care Provider] - Follow up as needed
== END 2020-01-12 01:10 | disposition home or self-care (01) ==
LOC: ER 00:23
DX: K29.00 Acute gastritis without bleeding (principal); Z88.6 Allergy status to analgesic agent; Z88.5 Allergy status to narcotic agent
CPT/HCPCS: 99283

== ENCOUNTER 2020-03-30 17:19 | Emergency (ER) | payer MEDICAID ==
--- NOTE | 2020-03-30 18:55 | ER Document Report ---
ED Medical Screen (RME) - General Chief Complaint: Abscess Stated Complaint: ABSCESS Time Seen by Provider: 03/30/20 18:49 TRAVEL OUTSIDE OF THE [place] IN LAST 30 DAYS: No - HPI Notes: Patient is a 25-year-old female who presents with an abscess to her left buttocks that began 1 week ago. Patient states she was evaluated for it 4 days ago and was prescribed clindamycin. Patient has been taking the antibiotics as prescribed but notes no improvement. She states her symptoms are worsening and her abscess is becoming bigger. She denies fever and vomiting. - Related Data Allergies/Adverse Reactions: oxycodone [From Percocet] Allergy (Verified 12/21/19 04:47) Past Medical History Renal/ Medical History: Denies: Hx Peritoneal Dialysis Psychiatric Medical History: Denies: Hx Depression - Immunizations Immunizations up to date: Yes Hx Diphtheria, Pertussis, Tetanus Vaccination: Yes Physical Exam - Vital signs Vitals: Temp Pulse Resp BP Pulse Ox 99.0 F 120 H 20 128/92 H 100 03/30/20 18:06 03/30/20 18:06 03/30/20 18:06 03/30/20 18:06 03/30/20 18:06 Interpretation: Tachycardic - Skin Notes: Abscess to the left buttock, exam limited due to location in triage. Course - Re-evaluation Re-evalutation: I have greeted and performed a rapid initial assessment of this patient. A comprehensive ED assessment and evaluation of the patient, analysis of test results and completion of medical decision making process will be conducted by an additional ED providers. - Vital Signs Vital signs: Temp Pulse Resp BP Pulse Ox 99.0 F 120 H 20 128/92 H 100 03/30/20 18:06 03/30/20 18:06 03/30/20 18:06 03/30/20 18:06 03/30/20 18:06
[2020-03-30 20:02] LABS: ABSOLUTE EOSINOPHILS # (AUTO) 0.2 10^3/uL (0.0-0.6); ABSOLUTE LYMPHOCYTES (AUTO) 1.9 10^3/uL (0.5-4.7); ABSOLUTE MONOCYTES (AUTO) 0.7 10^3/uL (0.1-1.4); ABSOLUTE NEUT (AUTO) 9.7 10^3/uL (1.7-8.2); BASOPHILS % (AUTO) 0.2 % (0-2); EOSINOPHILS % (AUTO) 1.2 % (0-6); HEMATOCRIT 40.4 % (36.0-47.0); HEMOGLOBIN 12.9 g/dL (12.0-15.5); LYMPHOCYTES % (AUTO) 15.4 % (13-45); MEAN CORPUSCULAR HEMOGLOBIN 24.9 pg (27.0-33.4); MEAN CORPUSCULAR HGB CONC 31.9 g/dL (32.0-36.0); MEAN CORPUSCULAR VOLUME 78 fl (80-97); MONOCYTES % (AUTO) 5.7 % (3-13); PLATELET COUNT 309 10^3/uL (150-450); RED BLOOD COUNT 5.17 10^6/uL (3.72-5.28); RED CELL DISTRIBUTION WIDTH 14.7 % (11.5-14.0); SEGMENTED NEUTROPHILS % (AUTO) 77.5 % (42-78); TOTAL CELLS COUNTED % (AUTO) 100 %; WHITE BLOOD COUNT 12.5 10^3/uL (4.0-10.5)
[2020-03-30 20:14] LABS: ALBUMIN 4.9 g/dL (3.5-5.0); ALKALINE PHOSPHATASE 87 U/L (38-126); ANION GAP 9 (5-19); ASPARTATE AMINO TRANSFERASE 24 U/L (14-36); BILIRUBIN,DIRECT 0.2 mg/dL (0.0-0.4); BILIRUBIN,TOTAL 0.3 mg/dL (0.2-1.3); BLOOD UREA NITROGEN 9 mg/dL (7-20); CALCIUM 10.2 mg/dL (8.4-10.2); CARBON DIOXIDE 26 mmol/L (22-30); CHLORIDE 102 mmol/L (98-107); GLUCOSE 98 mg/dL (75-110); POTASSIUM 4.5 mmol/L (3.6-5.0); TOTAL PROTEIN 8.6 g/dL (6.3-8.2)
[2020-03-30] MEDS ORDERED: LIDOCAINE 2% INJ (20 MG/ML) 20 ML MDV INJ ONE (21:57)
[2020-03-30] MEDS ORDERED: HYDROCODONE/ACETAMINOPHEN 5-325 MG TABLET PO ONE (21:57)
--- NOTE | 2020-03-30 22:01 | ER Document Report ---
ED Skin Rash/Insect Bite/Abscs - General Chief Complaint: Abscess Stated Complaint: ABSCESS Time Seen by Provider: 03/30/20 18:49 Primary Care Provider: [facility] [Provider Group] - Follow up as needed Mode of Arrival: Ambulatory Information source: Patient Notes: 25-year-old female presented to ED for abscess to the left buttocks that began about a week ago. She states she was seen at an urgent care 4 days ago and started on clindamycin and was given a consult for [facility] for Monday. She states the pain got so bad that she called [facility] and they told her she could come to the ER. She is alert oriented respirations regular nonlabored speaking in full sentences. She does have a large abscess to the left buttocks and we will get an I&D completed on that while she is in the emergency room. She states she is in a lot of pain so she will be given a Roy now and then the I&D will be completed. She is allergic to oxycodone but she has had Roy before. Constitutional: Negative for fever. HENT: Negative for sore throat. Eyes: Negative for visual changes. Cardiovascular: Negative for chest pain. Respiratory: Negative for shortness of breath. Gastrointestinal: Negative for abdominal pain, vomiting or diarrhea. Genitourinary: Negative for dysuria. Musculoskeletal: Negative for back pain. Skin: Large abscess to the left buttocks close to the buttocks cleft she states she has had a abscess on the right side in the past and was surgically I&D did. Neurological: Negative for headaches, weakness or numbness. 10 point ROS negative except as marked above and in HPI. VITAL SIGNS: Within normal limits. GENERAL: No acute distress, non-toxic appearance. HEAD: Normal with no signs of head trauma. EYES: PERRLA, EOMI, conjunctiva normal, no discharge. EARS: Hearing grossly intact. NOSE: Normal. THROAT: Oropharynx is normal. NECK: Normal range of motion, no tenderness, supple, no lymphadenopathy, No adenopathy, no JVD. CHEST: Clear breath sounds bilaterally. No wheezes, rales, or rhonchi. CARDIAC: Regular rate and rhythm. S1 and S2, without murmurs, gallops, or rubs. VASCULAR: No Edema. Peripheral pulses normal and equal in all extremities. ABDOMEN: Normal and soft with no tenderness, no masses or pulsatile masses. GASTROINTESTINAL: Bowel sounds normal GENITOURINARY: She is on her menstrual cycle at this time LYMPATHTIC: No lymphadenopathy noted. MUSCULOSKELETAL: Good range of motion of all major joints. Extremities without clubbing, cyanosis or edema. NEUROLOGICAL: Alert and oriented x 3. No focal sensory or strength deficits. Speech normal. Follows commands appropriately. PSYCHIATRIC: Normal Affect, judgement and mood. SKIN: Left buttocks abscess TRAVEL OUTSIDE OF THE [place] IN LAST 30 DAYS: No - HPI Patient complains to provider of: Tender/swollen area Onset: Last week Onset/Duration: Gradual, Worse Quality of pain: Throbbing Severity: Severe Pain Level: 5 Skin Character: Abscess Quality of rash: Painful Exacerbated by: Sitting Relieved by: Denies Similar symptoms previously: Yes Recently seen / treated by doctor: Yes - Related Data Allergies/Adverse Reactions: oxycodone [From Percocet] Allergy (Verified 12/21/19 04:47) Home Medications: clindamycin Past Medical History - General Information source: Patient - Social History Smoking Status: Current Every Day Smoker Chew tobacco use (# tins/day): No Frequency of alcohol use: Occasional Drug Abuse: None Family History: Reviewed & Not Pertinent Patient has suicidal ideation: No Patient has homicidal ideation: No - Past Medical History Cardiac Medical History: Reports: None Pulmonary Medical History: Reports: None EENT Medical History: Reports: None Neurological Medical History: Reports: None Endocrine Medical History: Reports: None Renal/ Medical History: Reports: None Malignancy Medical History: Reports: None GI Medical History: Reports: None Musculoskeletal Medical History: Reports None Skin Medical History: Reports Hx Cellulitis - Abscess to the right buttocks Psychiatric Medical History: Reports: None Traumatic Medical History: Reports: None Infectious Medical History: Reports: None Past Surgical History: Reports: Other - Go I&D of abscess to right buttocks - Immunizations Immunizations up to date: Yes Hx Diphtheria, Pertussis, Tetanus Vaccination: Yes Physical Exam - Vital signs Vitals: Temp Pulse Resp BP Pulse Ox 99.0 F 120 H 20 128/92 H 100 03/30/20 18:06 03/30/20 18:06 03/30/20 18:06 03/30/20 18:06 03/30/20 18:06 Course - Vital Signs Vital signs: Temp Pulse Resp BP Pulse Ox 98.3 F 94 16 127/68 H 100 03/30/20 23:34 03/30/20 23:34 03/30/20 23:34 03/30/20 23:34 03/30/20 23:34 - Laboratory Results Result Diagrams: 03/30/20 19:19 03/30/20 19:19 Laboratory Results Interpreted: 03/30/20 03/30/20 19:19 19:19 WBC 12.5 H MCV 78 L MCH 24.9 L MCHC 31.9 L RDW 14.7 H Absolute Neuts (auto) 9.7 H Total Protein 8.6 H Critical Laboratory Results Reviewed: No Critical Results - Radiology Results Critical Radiology Results Reviewed: No Critical Results Procedures - Incision and Drainage Left Buttock Time completed: 23:32 Type: Complex Anesthetic type: 2% Lidocaine mL's of anesthetic: 8 Blade size: 11 I&D procedure: Chlorprep applied, Shurclens applied, Iodoform packing placed Incision Method: Incision made by scalpel Amount/type of drainage: Copious amounts of purulent drainage foul-smelling Discharge - Discharge Clinical Impression: Abscess of buttock, left Condition: Stable Disposition: HOME, SELF-CARE Additional Instructions: ABSCESS: You have an abscess (boil). This a pus-forming infection, usually due to staph. Some boils may be left to drain on their own, but most require lancing. From the time the tender lump first appears, it may be three or four days before the abscess is ready to tommy. Local heat and rest help at this stage of treatment. An antibiotic may prevent spread of the infection. Once the abscess is opened, packing may be placed into it. This is done so pus is not sealed inside by premature closure of the cavity. The packing will be removed at your follow-up visit or you may be advised to remove it yourself at home. Sometimes this packing must be replaced a few times during healing. The wound will heal with surprisingly little scar. Depending on the size and location of an abscess, healing can take one to four weeks. You may shower and wash the area around the incision site two or three times a day. Antibiotics may be prescribed, but are usually not necessary after an abscess has been drained. If you develop fever, chills, worsening pain, or increasing swelling in the area, call the doctor or return immediately. POST INCISION AND DRAINAGE: You have had an incision made to allow drainage of an abscess. The incision must remain open so that pus and debris can drain from the wound. If the abscess cavity is large, packing is placed. This keeps the tissues from collapsing and trapping pus inside, while the body shrinks the cavity. The packing may need to be replaced every day or two. The physician will instruct you on the packing. Keep a bulky dressing over the area. Replace it if it becomes saturated with blood or pus. Do not disturb the packing (if present). You may shower and cleanse the area with gentle soap and warm water two or three times a day. Local warmth may be soothing, and may promote faster healing. Return if you develop high fever or chills, or if you note spreading redness, increasing swelling, or increasing tenderness. MRSA CELLULITIS: You have an infection of your skin and underlying soft tissues called cellulitis. This is due to bacteria, which can enter through any break in the skin, or even through an irritated hair follicle. Untreated, cellulitis will usually worsen and may form an abscess which requires draining. Although many bacterial organisms can cause cellulitis and abscess formations, the most likely bacteria is Methicillin-Resistant Staph Aureus, or MRSA for short. Antibiotics are required. Usually, warm packs or warm soaks, and elevation of the infected area are recommended. You should start getting better within 24 to 36 hours. Most infections respond quickly to the right medication. Follow-up care is important, however, to check for abscess (boil) formation, unsuspected foreign body, or resistant infection. If you develop fever, chills, or if the area of infection is becoming rapidly more swollen or painful, call the doctor at once. ORAL NARCOTIC MEDICATION: You have been given a [employer] dispense pack for pain control. This medication is a narcotic. It's best taken with food, as nausea can result if taken on an empty stomach. Don't operate machinery or drive within six hours of taking this medicati on. Do not combine this medicine with alcohol, or with any medication which can cause sedation (such as cold tablets or sleeping pills) unless you get permission from the physician. Narcotics tend to cause constipation. If possible, drink plenty of fluids and eat a diet high in fiber and fruits. Please continue taking your antibiotics as prescribed. Please keep your follow- up appointment with the surgeon on Monday FOLLOW-UP CARE: Most simple abscesses will not require a follow up visit. If you had packing placed in the abscess, remove it as instructed by the physician. If you have been referred to a physician for follow-up care, call the physicians office for an appointment as you were instructed or within the next two days. If you experience worsening or a significant change in your symptoms, return to the Emergency Department at any time for re-evaluation. Forms: Elevated Blood Pressure, Smoking Cessation Education, Return to Work Referrals: [facility] [Provider Group] - Follow up as needed
[2020-03-30] MEDS ORDERED: HYDROCODONE/ACETAMINOPHEN 5-325 MG (6 TAB/ER DISP) PO PRN (23:19)
[2020-03-30 23:40] VITALS: BP 127/68
== END 2020-03-30 23:34 | disposition home or self-care (01) ==
LOC: ER 17:19
DX: L02.31 Cutaneous abscess of buttock (principal); F17.200 Nicotine dependence, unspecified, uncomplicated; Z88.6 Allergy status to analgesic agent
CPT/HCPCS: 99284; 36415; 87070; 87205; 85025; 87075; 80053; 10061; J3490